=== PATIENT | female | born 1985 | race Caucasian/White ===

== ENCOUNTER 2020-04-07 14:35 | Emergency (ER) | payer OTHER, MEDICAID, SELFPAY ==
[2020-04-07] VITALS (15 sets, daily range): BP systolic 110–139; BP diastolic 58–93; PULSE 82–120; RESP 14–20; TEMP 36.9–37.1; O2SAT 92–100; BMI 25.8
--- NOTE | 2020-04-07 14:43 | ED_ITS ---
HPI - SOB/Dyspnea <DO Kathie Riley Last Filed: 04/12/20 07:37> General Chief Complaint: Shortness of Breath/Dyspnea Stated Complaint: Cough x4 Days / Diarrhea Time Seen by Provider: 04/07/20 14:43 Source: patient and EMS Mode of arrival: EMS Limitations: no limitations History of Present Illness HPI Narrative: Patient is a 34-year-old female who presents with 4 days of cough his shortness of breath. She says that she has been traveling around the country over the last 1 month she has been driving and trying to make it straight through. She has also had some vomiting diarrhea ongoing for the last 1 month. She admits to partying pretty hard over the 04 of April weekend however her cough and shortness of breath have gotten worse. She says it hurts every time he takes a deep breath. She has had sweats and has been taking her temperature fairly religiously and the highest it has been is 102. She denies any abdominal pain. MD Complaint: shortness of breath and cough Related Data Previous Rx's Medication Instructions Recorded chlordiazepoxide HCl See Rx Instructions .ROUTE 04/08/20 .COMPLEX PRN #32 cap Allergies Allergy/AdvReac Type Severity Reaction Status Date / Time No Known Drug Allergies Allergy Verified 04/07/20 14:43 Review of Systems <DO Kathie Riley Last Filed: 04/12/20 07:37> Review of Systems ROS Unobtainable: All systems reviewed & are unremarkable except as noted in HPI and below Constitutional Constitutional: Reports body ache(s) and Reports chills Eyes Eyes: Denies change in vision, Denies eye discharge, Denies irritation and Denies loss of vision Cardiovascular Cardiovascular: Denies chest pain, Denies irregular heart rhythm, Denies lighth eadedness, Denies palpitations, Reports dyspnea and Denies orthopnea Respiratory Respiratory: Reports cough and Reports dyspnea Integumentary/Breasts Skin/Breast: Denies pruritus, Denies erythema, Denies rash and Denies wounds Neurologic Neurologic: Denies loss of vision Endocrine Endocrine: Denies palpitations Patient History <DO Kathie Riley Last Filed: 04/12/20 07:37> Social History Smoking Status: Current every day smoker Alcohol type: beer Substance Use Type: does not use Exam <DO Kathie Riley Last Filed: 04/12/20 07:37> Initial Vital Signs Initial Vital Signs: Vital Signs Temperature 98.8 F 04/07/20 14:43 Pulse Rate 112 H 04/07/20 14:43 Respiratory Rate 18 04/07/20 14:43 Blood Pressure 134/86 04/07/20 14:43 Pulse Oximetry 95 04/07/20 14:43 GENERAL: Tearful alert female and in [no acute] distress. HEENT: Head atraumatic,EOMI, pupils reactive, face symmetric CARDIOVASCULAR: Regular rate and rhythm without murmurs, rubs or gallops. RESPIRATORY: Breath sounds equal bilaterally, no wheezes rales or rhonchi. ABDOMEN: Soft, nontender. Normoactive bowel sounds all 4 quadrants. No guardi ng or rebound. EXTREMITIES: Normal range of motion, no clubbing or edema. Neurovascularly intact NEUROLOGICAL: Alert and oriented x4.Normal gait and speech. SKIN: Warm, dry, no laceration, no petechiae, no rashes or lesions. <Jones Parry MD - Last Filed: 04/08/20 07:22> Initial Vital Signs Initial Vital Signs: Vital Signs Temperature 98.8 F 04/07/20 14:43 Pulse Rate 112 H 04/07/20 14:43 Respiratory Rate 18 04/07/20 14:43 Blood Pressure 134/86 04/07/20 14:43 Pulse Oximetry 95 04/07/20 14:43 Scores <DO Kathie Riley Last Filed: 04/12/20 07:37> PERC Score Age greater than or equal to 50 years: No Heart rate greater than or equal to 100 bpm: Yes Room Air O2 Sat less than 95%: No Unilateral leg swelling: No Recent trauma or surgery: No Hemoptysis: No Prior PE or DVT: No Hormone Use: No Total PERC Score: 1 Course <DO Kathie Riley Last Filed: 04/12/20 07:37> Orders Ordered: Discontinued Medications Albuterol (Ventolin Hfa) 1 puff INH NOW ONE Stop: 04/07/20 14:45 Last Admin: 04/07/20 14:55 Dose: 1 puff Documented by: MELISSA Sodium Chloride (Normal Saline 0.9%) 1,000 mls @ 100 mls/hr IV CONT NELLIE Last Infusion: 04/07/20 18:38 Dose: 0 mls/hr Documented by: Infusion: 04/07/20 16:40 Dose: 999 mls/hr Documented by: Admin: 04/07/20 15:23 Dose: 100 mls/hr Documented by: SUZI Sodium Chloride (Normal Saline 0.9%) 1,000 mls @ 1,000 mls/hr IV BOLUS ONE Stop: 04/07/20 16:58 Last Infusion: 04/07/20 19:33 Dose: 0 mls/hr Documented by: Admin: 04/07/20 17:24 Dose: 1,000 mls/hr Documented by: SUZI Sodium Chloride (Normal Saline 0.9%) 1,000 mls @ 1,000 mls/hr IV BOLUS ONE Stop: 04/07/20 20:35 Last Infusion: 04/07/20 21:04 Dose: 1,000 mls/hr Documented by: Admin: 04/07/20 19:57 Dose: 1,000 mls/hr Documented by: JOS Lorazepam (Ativan) 2 mg PO NOW ONE Stop: 04/07/20 18:36 Last Admin: 04/07/20 18:40 Dose: 2 mg Documented by: SUZI Lorazepam (Ativan) 2 mg PO NOW ONE Stop: 04/08/20 01:38 Last Admin: 04/08/20 01:43 Dose: 2 mg Documented by: FLO Phenobarbital (Phenobarbital) 130 mg IV NOW ONE Stop: 04/07/20 16:45 Last Admin: 04/07/20 16:57 Dose: 130 mg Documented by: SUZI Vital Signs Vital signs: Vital Signs - 8 hr 04/08/20 02:02 Pulse Rate 80 Respiratory Rate 15 Blood Pressure 134/70 Pulse Oximetry 96 <Jones Parry MD - Last Filed: 04/08/20 07:22> Course Course Narrative: 04/08/2020. Care was transitioned from Dr. Zuniga to myself at change of shift. Patient was found to be quite intoxicated. She was evaluated for infection, Covid testing was negative. She is medicated for tremor. Along with the significant elevated alcohol level, she had elevated lactic acid level. Lactic acid improved with IV hydration and time. She has lactic acidosis secondary to the alcohol intoxication, she has no clinical findings suggestive of sepsis. During her care in the ER she was evaluated by a social media assistant to assist in placement. Her alcohol level has decreased below 0.2, she is oriented, but complains of tremor. I gave Ativan 2 mg p.o. in addition to care already provided by Dr. Zuniga. This helped with the tremor, she is able rest again. With the assistance from our social media assistant, it was felt that she was in position to be placed for alcohol detox. The situation apparently changed following change of shift, we have since been told there was no bed available tonight. The patient has agreed to stay in the ER through the night awaiting repeat evaluation for placement here and by the [facility] facility in the morning.Verónica FRAUSTO 07:10.04/08/20. The patient has done well throughout the night, she did receive the 1 dose of Ativan but is currently resting well without further medication. The hospital social media assistant will be asked to intervene again this morning, disposition is pending. Dr. Pop, the current ER doctor, has been notified of the situation. I suspect no intervention other than completing the disposition. Orders Ordered: Discontinued Medications Albuterol (Ventolin Hfa) 1 puff INH NOW ONE Stop: 04/07/20 14:45 Last Admin: 04/07/20 14:55 Dose: 1 puff Documented by: MELISSA Sodium Chloride (Normal Saline 0.9%) 1,000 mls @ 100 mls/hr IV CONT NELLIE Last Infusion: 04/07/20 18:38 Dose: 0 mls/hr Documented by: Infusion: 04/07/20 16:40 Dose: 999 mls/hr Documented by: Admin: 04/07/20 15:23 Dose: 100 mls/hr Documented by: SUZI Sodium Chloride (Normal Saline 0.9%) 1,000 mls @ 1,000 mls/hr IV BOLUS ONE Stop: 04/07/20 16:58 Last Infusion: 04/07/20 19:33 Dose: 0 mls/hr Documented by: Admin: 04/07/20 17:24 Dose: 1,000 mls/hr Documented by: SUZI Sodium Chloride (Normal Saline 0.9%) 1,000 mls @ 1,000 mls/hr IV BOLUS ONE Stop: 04/07/20 20:35 Last Infusion: 04/07/20 21:04 Dose: 1,000 mls/hr Documented by: Admin: 04/07/20 19:57 Dose: 1,000 mls/hr Documented by: JOS Lorazepam (Ativan) 2 mg PO NOW ONE Stop: 04/07/20 18:36 Last Admin: 04/07/20 18:40 Dose: 2 mg Documented by: SUZI Lorazepam (Ativan) 2 mg PO NOW ONE Stop: 04/08/20 01:38 Last Admin: 04/08/20 01:43 Dose: 2 mg Documented by: FLO Phenobarbital (Phenobarbital) 130 mg IV NOW ONE Stop: 04/07/20 16:45 Last Admin: 04/07/20 16:57 Dose: 130 mg Documented by: SUZI Vital Signs Vital signs: Vital Signs - 8 hr 04/08/20 02:02 Pulse Rate 80 Respiratory Rate 15 Blood Pressure 134/70 Pulse Oximetry 96 MDM - SOB/Dyspnea <Brianne Zuniga DO - Last Filed: 04/12/20 07:37> Lab Data Attestation: I reviewed the patient's lab results. Result diagrams: 04/07/20 14:40 04/07/20 14:40 Labs: Lab Results 04/07/20 04/07/20 04/07/20 Range/Units 14:40 14:40 14:40 WBC 5.8 (4.5-11.0) X10^3/uL RBC 4.62 (4.0-5.2) X10^6/uL Hgb 15.6 (12.0-16.0) g/dL Hct 46.0 (36-46) % MCV 99.5 (80-100) fL MCH 33.8 (26-34) PG MCHC 33.9 (30-36) % RDW 14.8 (11.6-14.8) % Plt Count 453 H (150-400) X10^3/uL Neut % (Auto) 40.8 L (50-75) % Lymph % (Auto) 48.8 H (25-40) % Schleicher % (Auto) 9.6 (3-14) % Eos % (Auto) 0.3 L (2-4) % Baso % (Auto) 0.5 (0-2) % Neut # (Auto) 2400 (7654-1957) /uL Lymph # (Auto) 2800 (6969-6823) /uL Schleicher # (Auto) 600 (0-900) /uL Eos # (Auto) 0 (0-450) /uL Baso # (Auto) 0 (0-100) /uL D-Dimer 289 H (<230) ng/mL Sodium 140 (137-145) mmol/L Potassium 4.0 (3.4-5.1) mmol/L Chloride 103 (98-107) mmol/L Carbon Dioxide 24 (22-32) mmol/L BUN 6 L (7-17) mg/dL Creatinine 0.60 (0.52-1.04) mg/dL Estimated GFR > 60.0 (>60) mL/min BUN/Creatinine Ratio 10.0 (6-22) Glucose 103 H (70-100) mg/dL Lactate (0.7-2.1) mmol/L Calcium 9.1 (8.4-10.2) mg/dL Ferritin (6-137) ng/mL Total Bilirubin 0.5 (0.2-1.3) mg/dL AST 107 H (14-36) IU/L ALT 119 H (<35) IU/L Alkaline Phosphatase 75 (38-126) U/L Total Creatine Kinase 69 (30-135) U/L CK-MB (CK-2) TNP CK-MB (CK-2) Rel Index TNP Troponin I < 0.012 (0.01-0.034) ng/mL C-Reactive Protein (<1.0) mg/dL NT-Pro-B Natriuret Pep (<125) pg/mL Total Protein 8.1 (6.3-8.2) g/dL Albumin 4.8 (3.5-5.0) g/dL Globulin 3.3 (1.7-4.1) g/dL Albumin/Globulin Ratio 1.5 (1.0-2.8) Procalcitonin (<0.5) ng/mL Ethyl Alcohol ( - 10) mg/dL COVID-19 PCR 04/07/20 04/07/20 04/07/20 Range/Units 14:40 14:40 14:40 WBC (4.5-11.0) X10^3/uL RBC (4.0-5.2) X10^6/uL Hgb (12.0-16.0) g/dL Hct (36-46) % MCV (80-100) fL MCH (26-34) PG MCHC (30-36) % RDW (11.6-14.8) % Plt Count (150-400) X10^3/uL Neut % (Auto) (50-75) % Lymph % (Auto) (25-40) % Schleicher % (Auto) (3-14) % Eos % (Auto) (2-4) % Baso % (Auto) (0-2) % Neut # (Auto) (6918-4806) /uL Lymph # (Auto) (1207-6799) /uL Schleicher # (Auto) (0-900) /uL Eos # (Auto) (0-450) /uL Baso # (Auto) (0-100) /uL D-Dimer (<230) ng/mL Sodium (137-145) mmol/L Potassium (3.4-5.1) mmol/L Chloride (98-107) mmol/L Carbon Dioxide (22-32) mmol/L BUN (7-17) mg/dL Creatinine (0.52-1.04) mg/dL Estimated GFR (>60) mL/min BUN/Creatinine Ratio (6-22) Glucose (70-100) mg/dL Lactate (0.7-2.1) mmol/L Calcium (8.4-10.2) mg/dL Ferritin 44 (6-137) ng/mL Total Bilirubin (0.2-1.3) mg/dL AST (14-36) IU/L ALT (<35) IU/L Alkaline Phosphatase (38-126) U/L Total Creatine Kinase (30-135) U/L CK-MB (CK-2) CK-MB (CK-2) Rel Index Troponin I (0.01-0.034) ng/mL C-Reactive Protein < 0.5 (<1.0) mg/dL NT-Pro-B Natriuret Pep 28 (<125) pg/mL Total Protein (6.3-8.2) g/dL Albumin (3.5-5.0) g/dL Globulin (1.7-4.1) g/dL Albumin/Globulin Ratio (1.0-2.8) Procalcitonin < 0.05 (<0.5) ng/mL Ethyl Alcohol 415 H* ( - 10) mg/dL COVID-19 PCR 04/07/20 04/07/20 04/07/20 Range/Units 14:50 14:50 15:10 WBC (4.5-11.0) X10^3/uL RBC (4.0-5.2) X10^6/uL Hgb (12.0-16.0) g/dL Hct (36-46) % MCV (80-100) fL MCH (26-34) PG MCHC (30-36) % RDW (11.6-14.8) % Plt Count (150-400) X10^3/uL Neut % (Auto) (50-75) % Lymph % (Auto) (25-40) % Schleicher % (Auto) (3-14) % Eos % (Auto) (2-4) % Baso % (Auto) (0-2) % Neut # (Auto) (5945-0184) /uL Lymph # (Auto) (9590-3425) /uL Schleicher # (Auto) (0-900) /uL Eos # (Auto) (0-450) /uL Baso # (Auto) (0-100) /uL D-Dimer (<230) ng/mL Sodium (137-145) mmol/L Potassium (3.4-5.1) mmol/L Chloride (98-107) mmol/L Carbon Dioxide (22-32) mmol/L BUN (7-17) mg/dL Creatinine (0.52-1.04) mg/dL Estimated GFR (>60) mL/min BUN/Creatinine Ratio (6-22) Glucose (70-100) mg/dL Lactate 3.2 H (0.7-2.1) mmol/L Calcium (8.4-10.2) mg/dL Ferritin (6-137) ng/mL Total Bilirubin (0.2-1.3) mg/dL AST (14-36) IU/L ALT (<35) IU/L Alkaline Phosphatase (38-126) U/L Total Creatine Kinase (30-135) U/L CK-MB (CK-2) CK-MB (CK-2) Rel Index Troponin I (0.01-0.034) ng/mL C-Reactive Protein (<1.0) mg/dL NT-Pro-B Natriuret Pep (<125) pg/mL Total Protein (6.3-8.2) g/dL Albumin (3.5-5.0) g/dL Globulin (1.7-4.1) g/dL Albumin/Globulin Ratio (1.0-2.8) Procalcitonin (<0.5) ng/mL Ethyl Alcohol ( - 10) mg/dL COVID-19 PCR Cancelled Negative 04/07/20 04/07/20 04/07/20 Range/Units 17:42 21:00 21:00 WBC (4.5-11.0) X10^3/uL RBC (4.0-5.2) X10^6/uL Hgb (12.0-16.0) g/dL Hct (36-46) % MCV (80-100) fL MCH (26-34) PG MCHC (30-36) % RDW (11.6-14.8) % Plt Count (150-400) X10^3/uL Neut % (Auto) (50-75) % Lymph % (Auto) (25-40) % Schleicher % (Auto) (3-14) % Eos % (Auto) (2-4) % Baso % (Auto) (0-2) % Neut # (Auto) (2662-0891) /uL Lymph # (Auto) (1279-5821) /uL Schleicher # (Auto) (0-900) /uL Eos # (Auto) (0-450) /uL Baso # (Auto) (0-100) /uL D-Dimer (<230) ng/mL Sodium (137-145) mmol/L Potassium (3.4-5.1) mmol/L Chloride (98-107) mmol/L Carbon Dioxide (22-32) mmol/L BUN (7-17) mg/dL Creatinine (0.52-1.04) mg/dL Estimated GFR (>60) mL/min BUN/Creatinine Ratio (6-22) Glucose (70-100) mg/dL Lactate 2.9 H 2.7 H (0.7-2.1) mmol/L Calcium (8.4-10.2) mg/dL Ferritin (6-137) ng/mL Total Bilirubin (0.2-1.3) mg/dL AST (14-36) IU/L ALT (<35) IU/L Alkaline Phosphatase (38-126) U/L Total Creatine Kinase (30-135) U/L CK-MB (CK-2) CK-MB (CK-2) Rel Index Troponin I (0.01-0.034) ng/mL C-Reactive Protein (<1.0) mg/dL NT-Pro-B Natriuret Pep (<125) pg/mL Total Protein (6.3-8.2) g/dL Albumin (3.5-5.0) g/dL Globulin (1.7-4.1) g/dL Albumin/Globulin Ratio (1.0-2.8) Procalcitonin (<0.5) ng/mL Ethyl Alcohol 191 H ( - 10) mg/dL COVID-19 PCR 04/07/20 Range/Units 23:15 WBC (4.5-11.0) X10^3/uL RBC (4.0-5.2) X10^6/uL Hgb (12.0-16.0) g/dL Hct (36-46) % MCV (80-100) fL MCH (26-34) PG MCHC (30-36) % RDW (11.6-14.8) % Plt Count (150-400) X10^3/uL Neut % (Auto) (50-75) % Lymph % (Auto) (25-40) % Schleicher % (Auto) (3-14) % Eos % (Auto) (2-4) % Baso % (Auto) (0-2) % Neut # (Auto) (9179-7809) /uL Lymph # (Auto) (9198-1214) /uL Schleicher # (Auto) (0-900) /uL Eos # (Auto) (0-450) /uL Baso # (Auto) (0-100) /uL D-Dimer (<230) ng/mL Sodium (137-145) mmol/L Potassium (3.4-5.1) mmol/L Chloride (98-107) mmol/L Carbon Dioxide (22-32) mmol/L BUN (7-17) mg/dL Creatinine (0.52-1.04) mg/dL Estimated GFR (>60) mL/min BUN/Creatinine Ratio (6-22) Glucose (70-100) mg/dL Lactate 2.1 (0.7-2.1) mmol/L Calcium (8.4-10.2) mg/dL Ferritin (6-137) ng/mL Total Bilirubin (0.2-1.3) mg/dL AST (14-36) IU/L ALT (<35) IU/L Alkaline Phosphatase (38-126) U/L Total Creatine Kinase (30-135) U/L CK-MB (CK-2) CK-MB (CK-2) Rel Index Troponin I (0.01-0.034) ng/mL C-Reactive Protein (<1.0) mg/dL NT-Pro-B Natriuret Pep (<125) pg/mL Total Protein (6.3-8.2) g/dL Albumin (3.5-5.0) g/dL Globulin (1.7-4.1) g/dL Albumin/Globulin Ratio (1.0-2.8) Procalcitonin (<0.5) ng/mL Ethyl Alcohol ( - 10) mg/dL COVID-19 PCR Point of Care Testing Test Results Negative Urine Dip Bedside Urine Glucose Negative Bedside Urine Bilirubin - Negative Bedside Urine Ketone - Negative Urine Specific [place] 1.020 Bedside Urine Occult Blood +++ Bedside Urine pH 6.0 Bedside Urine Protein +/- 15 Bedside Urine Urobilinogen - Negative Bedside Urine Nitrite - Negative Bedside Urine Leukocytes - Negative Esterase Imaging Data Chest x-ray: Radiologist's Impression: PROCEDURE: XR CHEST 1V INDICATIONS: flu-like symptoms TECHNIQUE: One view of the chest was acquired. COMPARISON: None. FINDINGS: Surgical changes and devices: None. Lungs and pleura: Lungs are clear. No pleural effusions or pneumothorax. Mediastinum: Mediastinal contours appear normal. Heart size is normal. Bones and chest wall: No suspicious bony lesions. Overlying soft tissues appear unremarkable. IMPRESSION: Normal for age, source of current flulike symptoms is not seen. Dictated by: Jorge Alberto Vu M.D. on 04/07/2020 at 16:03 Approved by: Jorge Alberto Vu M.D. on 04/07/2020 at 16:03 ECG Data Attestation: I personally reviewed and interpreted this ECG as follows: Prior ECG tracings: not available for review Interpretation: Normal sinus rhythm rate 100 p.r. interval 114 QRS [address] changes no priors to compare MDM Narrative Medical decision making narrative: Patient is an alcoholic admits to drinking a 12 pack of beer daily for number of months. Her alcohol level is significantly elevated at 415 she is awake alert and talking. She is given a dose of phenobarbital she starts shaking a little and later becomes quite anxious requiring Ativan. There is no sign of infection at this time urine chest x-ray and COVID are negative D-dimer and PERC score are also low and negative. She says her diarrhea and vomiting have been ongoing for months she has not had any vomiting or diarrhea while in the emergency department does not appear to be significantly dehydrated. Initial lactic acid is 3.2 repeat after 2 L of IV fluids is 2.9. She is wanting detox, social work has been in to evaluate. Patient signed out to Dr. Parry for further management <Jones Parry MD - Last Filed: 04/08/20 07:22> Lab Data Labs: Lab Results 04/07/20 04/07/20 04/07/20 Range/Units 14:40 14:40 14:40 WBC 5.8 (4.5-11.0) X10^3/uL RBC 4.62 (4.0-5.2) X10^6/uL Hgb 15.6 (12.0-16.0) g/dL Hct 46.0 (36-46) % MCV 99.5 (80-100) fL MCH 33.8 (26-34) PG MCHC 33.9 (30-36) % RDW 14.8 (11.6-14.8) % Plt Count 453 H (150-400) X10^3/uL Neut % (Auto) 40.8 L (50-75) % Lymph % (Auto) 48.8 H (25-40) % Schleicher % (Auto) 9.6 (3-14) % Eos % (Auto) 0.3 L (2-4) % Baso % (Auto) 0.5 (0-2) % Neut # (Auto) 2400 (1938-9555) /uL Lymph # (Auto) 2800 (4573-1850) /uL Schleicher # (Auto) 600 (0-900) /uL Eos # (Auto) 0 (0-450) /uL Baso # (Auto) 0 (0-100) /uL D-Dimer 289 H (<230) ng/mL Sodium 140 (137-145) mmol/L Potassium 4.0 (3.4-5.1) mmol/L Chloride 103 (98-107) mmol/L Carbon Dioxide 24 (22-32) mmol/L BUN 6 L (7-17) mg/dL Creatinine 0.60 (0.52-1.04) mg/dL Estimated GFR > 60.0 (>60) mL/min BUN/Creatinine Ratio 10.0 (6-22) Glucose 103 H (70-100) mg/dL Lactate (0.7-2.1) mmol/L Calcium 9.1 (8.4-10.2) mg/dL Ferritin (6-137) ng/mL Total Bilirubin 0.5 (0.2-1.3) mg/dL AST 107 H (14-36) IU/L ALT 119 H (<35) IU/L Alkaline Phosphatase 75 (38-126) U/L Total Creatine Kinase 69 (30-135) U/L CK-MB (CK-2) TNP CK-MB (CK-2) Rel Index TNP Troponin I < 0.012 (0.01-0.034) ng/mL C-Reactive Protein (<1.0) mg/dL NT-Pro-B Natriuret Pep (<125) pg/mL Total Protein 8.1 (6.3-8.2) g/dL Albumin 4.8 (3.5-5.0) g/dL Globulin 3.3 (1.7-4.1) g/dL Albumin/Globulin Ratio 1.5 (1.0-2.8) Procalcitonin (<0.5) ng/mL Ethyl Alcohol ( - 10) mg/dL COVID-19 PCR 04/07/20 04/07/20 04/07/20 Range/Units 14:40 14:40 14:40 WBC (4.5-11.0) X10^3/uL RBC (4.0-5.2) X10^6/uL Hgb (12.0-16.0) g/dL Hct (36-46) % MCV (80-100) fL MCH (26-34) PG MCHC (30-36) % RDW (11.6-14.8) % Plt Count (150-400) X10^3/uL Neut % (Auto) (50-75) % Lymph % (Auto) (25-40) % Schleicher % (Auto) (3-14) % Eos % (Auto) (2-4) % Baso % (Auto) (0-2) % Neut # (Auto) (3923-8932) /uL Lymph # (Auto) (5351-7396) /uL Schleicher # (Auto) (0-900) /uL Eos # (Auto) (0-450) /uL Baso # (Auto) (0-100) /uL D-Dimer (<230) ng/mL Sodium (137-145) mmol/L Potassium (3.4-5.1) mmol/L Chloride (98-107) mmol/L Carbon Dioxide (22-32) mmol/L BUN (7-17) mg/dL Creatinine (0.52-1.04) mg/dL Estimated GFR (>60) mL/min BUN/Creatinine Ratio (6-22) Glucose (70-100) mg/dL Lactate (0.7-2.1) mmol/L Calcium (8.4-10.2) mg/dL Ferritin 44 (6-137) ng/mL Total Bilirubin (0.2-1.3) mg/dL AST (14-36) IU/L ALT (<35) IU/L Alkaline Phosphatase (38-126) U/L Total Creatine Kinase (30-135) U/L CK-MB (CK-2) CK-MB (CK-2) Rel Index Troponin I (0.01-0.034) ng/mL C-Reactive Protein < 0.5 (<1.0) mg/dL NT-Pro-B Natriuret Pep 28 (<125) pg/mL Total Protein (6.3-8.2) g/dL Albumin (3.5-5.0) g/dL Globulin (1.7-4.1) g/dL Albumin/Globulin Ratio (1.0-2.8) Procalcitonin < 0.05 (<0.5) ng/mL Ethyl Alcohol 415 H* ( - 10) mg/dL COVID-19 PCR 04/07/20 04/07/20 04/07/20 Range/Units 14:50 14:50 15:10 WBC (4.5-11.0) X10^3/uL RBC (4.0-5.2) X10^6/uL Hgb (12.0-16.0) g/dL Hct (36-46) % MCV (80-100) fL MCH (26-34) PG MCHC (30-36) % RDW (11.6-14.8) % Plt Count (150-400) X10^3/uL Neut % (Auto) (50-75) % Lymph % (Auto) (25-40) % Schleicher % (Auto) (3-14) % Eos % (Auto) (2-4) % Baso % (Auto) (0-2) % Neut # (Auto) (6409-1334) /uL Lymph # (Auto) (7654-2281) /uL Schleicher # (Auto) (0-900) /uL Eos # (Auto) (0-450) /uL Baso # (Auto) (0-100) /uL D-Dimer (<230) ng/mL Sodium (137-145) mmol/L Potassium (3.4-5.1) mmol/L Chloride (98-107) mmol/L Carbon Dioxide (22-32) mmol/L BUN (7-17) mg/dL Creatinine (0.52-1.04) mg/dL Estimated GFR (>60) mL/min BUN/Creatinine Ratio (6-22) Glucose (70-100) mg/dL Lactate 3.2 H (0.7-2.1) mmol/L Calcium (8.4-10.2) mg/dL Ferritin (6-137) ng/mL Total Bilirubin (0.2-1.3) mg/dL AST (14-36) IU/L ALT (<35) IU/L Alkaline Phosphatase (38-126) U/L Total Creatine Kinase (30-135) U/L CK-MB (CK-2) CK-MB (CK-2) Rel Index Troponin I (0.01-0.034) ng/mL C-Reactive Protein (<1.0) mg/dL NT-Pro-B Natriuret Pep (<125) pg/mL Total Protein (6.3-8.2) g/dL Albumin (3.5-5.0) g/dL Globulin (1.7-4.1) g/dL Albumin/Globulin Ratio (1.0-2.8) Procalcitonin (<0.5) ng/mL Ethyl Alcohol ( - 10) mg/dL COVID-19 PCR Cancelled Negative 04/07/20 04/07/20 04/07/20 Range/Units 17:42 21:00 21:00 WBC (4.5-11.0) X10^3/uL RBC (4.0-5.2) X10^6/uL Hgb (12.0-16.0) g/dL Hct (36-46) % MCV (80-100) fL MCH (26-34) PG MCHC (30-36) % RDW (11.6-14.8) % Plt Count (150-400) X10^3/uL Neut % (Auto) (50-75) % Lymph % (Auto) (25-40) % Schleicher % (Auto) (3-14) % Eos % (Auto) (2-4) % Baso % (Auto) (0-2) % Neut # (Auto) (2817-0347) /uL Lymph # (Auto) (9494-0854) /uL Schleicher # (Auto) (0-900) /uL Eos # (Auto) (0-450) /uL Baso # (Auto) (0-100) /uL D-Dimer (<230) ng/mL Sodium (137-145) mmol/L Potassium (3.4-5.1) mmol/L Chloride (98-107) mmol/L Carbon Dioxide (22-32) mmol/L BUN (7-17) mg/dL Creatinine (0.52-1.04) mg/dL Estimated GFR (>60) mL/min BUN/Creatinine Ratio (6-22) Glucose (70-100) mg/dL Lactate 2.9 H 2.7 H (0.7-2.1) mmol/L Calcium (8.4-10.2) mg/dL Ferritin (6-137) ng/mL Total Bilirubin (0.2-1.3) mg/dL AST (14-36) IU/L ALT (<35) IU/L Alkaline Phosphatase (38-126) U/L Total Creatine Kinase (30-135) U/L CK-MB (CK-2) CK-MB (CK-2) Rel Index Troponin I (0.01-0.034) ng/mL C-Reactive Protein (<1.0) mg/dL NT-Pro-B Natriuret Pep (<125) pg/mL Total Protein (6.3-8.2) g/dL Albumin (3.5-5.0) g/dL Globulin (1.7-4.1) g/dL Albumin/Globulin Ratio (1.0-2.8) Procalcitonin (<0.5) ng/mL Ethyl Alcohol 191 H ( - 10) mg/dL COVID-19 PCR 04/07/20 Range/Units 23:15 WBC (4.5-11.0) X10^3/uL RBC (4.0-5.2) X10^6/uL Hgb (12.0-16.0) g/dL Hct (36-46) % MCV (80-100) fL MCH (26-34) PG MCHC (30-36) % RDW (11.6-14.8) % Plt Count (150-400) X10^3/uL Neut % (Auto) (50-75) % Lymph % (Auto) (25-40) % Schleicher % (Auto) (3-14) % Eos % (Auto) (2-4) % Baso % (Auto) (0-2) % Neut # (Auto) (4755-1655) /uL Lymph # (Auto) (8802-4724) /uL Schleicher # (Auto) (0-900) /uL Eos # (Auto) (0-450) /uL Baso # (Auto) (0-100) /uL D-Dimer (<230) ng/mL Sodium (137-145) mmol/L Potassium (3.4-5.1) mmol/L Chloride (98-107) mmol/L Carbon Dioxide (22-32) mmol/L BUN (7-17) mg/dL Creatinine (0.52-1.04) mg/dL Estimated GFR (>60) mL/min BUN/Creatinine Ratio (6-22) Glucose (70-100) mg/dL Lactate 2.1 (0.7-2.1) mmol/L Calcium (8.4-10.2) mg/dL Ferritin (6-137) ng/mL Total Bilirubin (0.2-1.3) mg/dL AST (14-36) IU/L ALT (<35) IU/L Alkaline Phosphatase (38-126) U/L Total Creatine Kinase (30-135) U/L CK-MB (CK-2) CK-MB (CK-2) Rel Index Troponin I (0.01-0.034) ng/mL C-Reactive Protein (<1.0) mg/dL NT-Pro-B Natriuret Pep (<125) pg/mL Total Protein (6.3-8.2) g/dL Albumin (3.5-5.0) g/dL Globulin (1.7-4.1) g/dL Albumin/Globulin Ratio (1.0-2.8) Procalcitonin (<0.5) ng/mL Ethyl Alcohol ( - 10) mg/dL COVID-19 PCR Point of Care Testing Test Results Negative Urine Dip Bedside Urine Glucose Negative Bedside Urine Bilirubin - Negative Bedside Urine Ketone - Negative Urine Specific [place] 1.020 Bedside Urine Occult Blood +++ Bedside Urine pH 6.0 Bedside Urine Protein +/- 15 Bedside Urine Urobilinogen - Negative Bedside Urine Nitrite - Negative Bedside Urine Leukocytes - Negative Esterase Discharge Plan Departure Patient Disposition: Released, Other Clinical Impression: Alcohol intoxication, Lactic acidosis Discharge Date/Time: 04/08/20 14:12 Instructions: Alcohol Use Disorder Activity Restrictions/Additional Instructions: *You have been diagnosed with [alcohol abuse disorder] *What to do: *Take medications as directed: You have been given a prescription for a Librium taper *Please proceed directly from here to the treatment center in [place] that social work talked to you about: [facility] [address] [place] [id number] Prescriptions: New chlordiazepoxide HCl 25 mg capsule See Rx Instructions .ROUTE .COMPLEX PRN (Reason: alcohol withdrawal) Qty: 32 RF: 0
[2020-04-07 14:52] LABS: Add Manual Diff / Slide Review NO; Basophils Absolute Auto 0 /uL (0-100); Basophils Percent Auto 0.5 % (0-2); Eosinophils Absolute Auto 0 /uL (0-450); Eosinophils Percent Auto 0.3 % (2-4); Hemoglobin 15.6 g/dL (12.0-16.0); Lymphocytes Absolute Auto 2800 /uL (1100-4500); Lymphocytes Percent Auto 48.8 % (25-40); Mean Corpuscular HGB Conc 33.9 % (30-36); Mean Corpuscular Hemoglobin 33.8 PG (26-34); Mean Corpuscular Volume 99.5 fL (80-100); Monocytes Absolute Auto 600 /uL (0-900); Monocytes Percent Auto 9.6 % (3-14); Neutrophils Absolute Auto 2400 /uL (1500-7000); Neutrophils Percent Auto 40.8 % (50-75); Platelet Count 453 X10^3/uL (150-400); Red Blood Cell Count 4.62 X10^6/uL (4.0-5.2); Red Cell Distribution Width 14.8 % (11.6-14.8); White Blood Cell Count 5.8 X10^3/uL (4.5-11.0)
[2020-04-07] MEDS: ALBUTEROL HFA 60 PUFF/8 GM INH INH (14:55)
[2020-04-07 15:03] LABS: D Dimer 289 ng/mL (<230)
[2020-04-07 15:05] LABS: Alanine Aminotransferase 119 IU/L (<35); Albumin 4.8 g/dL (3.5-5.0); Albumin Globulin Ratio 1.5 (1.0-2.8); Alkaline Phosphatase 75 U/L (38-126); Aspartate Aminotransferase 107 IU/L (14-36); Bilirubin Total 0.5 mg/dL (0.2-1.3); Blood Urea Nitrogen 6 mg/dL (7-17); Calcium 9.1 mg/dL (8.4-10.2); Carbon Dioxide 24 mmol/L (22-32); Chloride 103 mmol/L (98-107); Creatine Kinase 69 U/L (30-135); Estimated Glomerular Filt Rate > 60.0 mL/min (>60); Globulin 3.3 g/dL (1.7-4.1); Glucose 103 mg/dL (70-100); HEMOLYSIS < 15 (0-50); Sodium 140 mmol/L (137-145); Total Protein 8.1 g/dL (6.3-8.2)
[2020-04-07 15:11] LABS: C-Reactive Protein Quant < 0.5 mg/dL (<1.0)
[2020-04-07 15:16] LABS: Troponin I < 0.012 ng/mL (0.01-0.034)
[2020-04-07 15:17] LABS: NT-proBNP (BNP-Adult 18+) 28 pg/mL (<125)
[2020-04-07 15:19] LABS: Procalcitonin < 0.05 ng/mL (<0.5)
[2020-04-07] MEDS: SODIUM CHLORIDE 0.9% 1,000 ML 100 ML IV (15:23)
[2020-04-07 15:36] LABS: Lactate (Lactic Acid) 3.2 mmol/L (0.7-2.1)
[2020-04-07 15:43] LABS: Ferritin 44 ng/mL (6-137)
[2020-04-07] MEDS: PHENobarbital 65 MG/ML VIAL 130 MG IV (16:57)
[2020-04-07 17:06] LABS: Ethanol (ETOH) 415 mg/dL
[2020-04-07 17:22] LABS: Reflexed Lactate in 2 Hours Y
[2020-04-07] MEDS: SODIUM CHLORIDE 0.9% 1,000 ML 1000 ML IV ×2 (17:24→19:57)
[2020-04-07 18:01] LABS: Lactate 2HR (Lactic Acid Rflx) 2.9 mmol/L (0.7-2.1)
[2020-04-07 18:03] LABS: COVID19 -Nasal RAPID Negative (Negative)
--- NOTE | 2020-04-07 18:23 | PC.NURSE ---
Pt states that she is coming off a major binge. States she has been drinking 20 beers a day for the last three months. States she is having withdrawal symptoms. Dr Zuniga informed. New orders.
[2020-04-07] MEDS: LORazepam 0.5 MG TABLET 2 MG PO (18:40)
--- NOTE | 2020-04-07 19:37 | CM.SWNOTE ---
Addendum entered by Marcos Cm 04/07/20 20:09: ROTARY DRYER OPERATOR note- UPDATE ROTARY DRYER OPERATOR calls [facility] after patient completes intake. [facility] informs ROTARY DRYER OPERATOR that they are able to accept patient and ask ROTARY DRYER OPERATOR to fax clinicals to [facility]. ROTARY DRYER OPERATOR informs [facility] of patient's ETOH upon presentation to ED, and that ED staff plan to get new labs for patient at 2100. [facility] informs ROTARY DRYER OPERATOR that patient must have ETOH of under 250 prior to transfer. ROTARY DRYER OPERATOR gives [facility] [phone] for coordination of transfer as ROTARY DRYER OPERATOR shift will end prior to patient being transferred. ROTARY DRYER OPERATOR faxes clinicals to [facility]. ROTARY DRYER OPERATOR updates Dr. Parry and patient, both indicate understanding and agreement with plan. ROTARY DRYER OPERATOR updates comments with next steps, updates ARANZA Tidwell for mounika simental coordination of transport and BENNIE Samano. pl: Patient to transfer to [facility] Marcos Cm, ALEXEI Original Note: ROTARY DRYER OPERATOR note/assessment ROTARY DRYER OPERATOR consult requested for patient. Patient is a 34 y/o female who presents to ED with cough, diarrhea, and etoh of 415 mg/dL upon time of admission. ROTARY DRYER OPERATOR meets with patient and completes assessment (see below). Patient reports she does not feel well, and doesn't want to feel this way anymore. Patient reports she wants to discontinue drinking, but states that saying it outloud gives [her] anxiety. ROTARY DRYER OPERATOR validates patient's feeling of anxiety, and discusses ways to proceed. ROTARY DRYER OPERATOR and patient discuss detox. ROTARY DRYER OPERATOR calls detox who ask for patient to call and complete intake. ROTARY DRYER OPERATOR brings patient phone number for detox. Patient will call detox facility and follow up with ROTARY DRYER OPERATOR after. ROTARY DRYER OPERATOR provides update to BENNIE Rodgers and BENNIE Samano. Pl: ROTARY DRYER OPERATOR will work with patient to secure placement at detox facility. ROTARY DRYER OPERATOR - Grey Inspector Assessment ROTARY DRYER OPERATOR - Grey Inspector Assessment Start: 04/07/20 19:18 Freq: Status: Active Protocol: Document 04/07/20 19:18 JONATHAN (Rec: 04/07/20 19:29 JONATHAN [id number]) ROTARY DRYER OPERATOR/Grey Inspector Assessment Time Spent with Patient Start date 04/07/20 Visit Start Time 18:50 End date 04/07/20 Visit End Time 19:15 Total time Care Management spent on 25 patient visit-in minutes Substance Abuse Screening Include Onset, Duration, Intensity Presenting Problem Patient states she has anxiety and panic disorder and self-medicates by drinking . Patient reports she has been drinking a lot for several months, and reports drinking from the time she wakes up until the time she goes to bed . Patient's ETOH is 415 mg/dL upon presentation to ED. Precipitating Event(s) Patient reports she lives an unstable lifestyle and has been for several years. Patient declined when asked if there was anything that happened during the previous few days prior to today's visit. Current Behavioral Health Provider(s) none reported Include Facility, Provider, Ph. # Family Hx of Behavioral Abuse none reported Rehab Facilities? ((Date(s), Location(s) none reported ) History of Withdrawal? Seizures? Patient does experience withdrawal symptoms, but reports not having previously experienced seizures during withdrawals. Longest Period of Sobriety Patient reports she has been binge drinking on and off since age 12. 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 Patient [place] and that her and her boyfriend rent out her house as an air bnb, and that she often doesn't know which place she is going to stay at at any given night. Patient reports she discontinued medication for her anxiety roughly 6 years ago and began binge drinking to cope with the symptoms. 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 Legal Concerns Legal Matters - Outstanding Issues none reported Mental Status Orientation (Person/Place/Time) Oriented x3 Affect euthymic, slightly anxious Thought Content - Specify/Describe no hallucinations, obsessions Obsessions, Delusions, Hallucinations , or delusions observed or reported during interview. Thought Processes (Ctazypz-Wquocbon-Xvww Logical-coherent Gzhaebxx-Quoytkgg-Mbhxzmfnqv- Xxzdusqakarenw-Cncsaua-Jfjhoelvlsjy- Thought Blocking) Speech (Fwxqim-Xzuc-Pjiafpg-Rapid-Soft- normal Loud-Pressured) Motor (Mkngko-Mknrrooes-Xviq-Other) normal Insight (Present-Partially Present- Partially present Impaired) Judgement (Intact-Impaired) intact Impulse Control (Adequate-Impaired) adequate Memory (Xuxglhdfw-Hukeef-Hypdno, intact x3 Impaired-Intact) Concentration (Intact-Impaired) intact Attention (Intact-Impaired) intact Behavior (Appropriate-Inappropriate) appropriate Risk Assessment Suicidal Ideation (Plan) No Homicidal Ideation (Plan) No Comment Patient denies and SI/HI Intervention Intervention ROTARY DRYER OPERATOR meets with patient. Patient reports wanting to discontinue use of alcohol. Patient reports she has used [facility] in the past, and has been binge drinking on-and -off since she was 12. ROTARY DRYER OPERATOR asked what patient planned to do to stop drinking. Patient reports she had reserved a motel room in [place], and was planning to stay there while detoxing. ROTARY DRYER OPERATOR and patient discussed detoxing at a facility. Patient expressed that she was nervous because going to a facility made it real. Patient agreed that she would like the support of a detox facility to help her with the withdrawals. Plan RA Plan ROTARY DRYER OPERATOR will give patient phone number to contact [facility] and assist with coordination for placement at detox facility. ALEXEI Brooks
[2020-04-07 21:17] LABS: Lactate (Lactic Acid) 2.7 mmol/L (0.7-2.1)
[2020-04-07 21:32] LABS: Ethanol (ETOH) 191 mg/dL
--- NOTE | 2020-04-07 21:45 | PC.NURSE ---
2144 RN called [facility] called to update pt level of ETOH under 250 for potential admission per conversation with FINANCIAL SALES MANAGER Marcos, Lakesha of [facility] stated she did not think a bed was available for pt due to the pt having covid symptoms and fever. RN faxed labs again confirming negative covid lab and ETOH level of 151. Lakesha stated that case would be passed off to shift coordinator to review and confirmed that no bed had been secured for pt at this time. 2004 RN called to confirm [facility] received fax and get an update. Brigitte of [facility] stated fax was received and that she did not think they were going to be able to accept because of fever and no female beds available. Brigitte was updated that pt has not had a fever upon being in ER and that ALEXEI Rodríguez communicated that a potential bed was available once ETOH redraw under 250 was faxed. Brigitte stated that she would follow up with trying to contact her specialty department supervisor network contract manager but most likely no bed would be available until earliest in the morning. Dr. Brinda martin.
[2020-04-07 23:03] LABS: Reflexed Lactate in 2 Hours Y
[2020-04-07 23:31] LABS: Lactate 2HR (Lactic Acid Rflx) 2.1 mmol/L (0.7-2.1)
[2020-04-08] MEDS: LORazepam 0.5 MG TABLET 2 MG PO (01:43)
[2020-04-08 02:02] VITALS: BP 134/70; PULSE 80; RESP 15; O2SAT 96
[2020-04-08 07:38] VITALS: BP 122/77; PULSE 92; RESP 16; O2SAT 96
--- NOTE | 2020-04-08 10:02 | PC.NURSE ---
left message with Care management
[2020-04-08 12:33] VITALS: O2SAT 99
[2020-04-08 12:36] VITALS: BP 133/74; PULSE 77
[2020-04-08 13:36] VITALS: BP 148/66; PULSE 76; RESP 19; O2SAT 98
--- NOTE | 2020-04-08 13:46 | PC.NURSE ---
spoke with Diann at [facility] triage detox. pt is accepted and will be getting a ride with her boyfriend to the facility
--- NOTE | 2020-04-08 15:22 | CM.SWNOTE ---
TAMALE MACHINE FEEDER Note Reviewed chart. This TAMALE MACHINE FEEDER requested to assist, Ama[facility] had denied Patient's admission this morning d/t presenting symptoms that mimic COVID-19 symptoms. COVID-19 results are Neg. Explained this to [facility] and they explained the medical records coder had already made the decision, they wanted to be very cautious about potential exposure to COVID-19. Spoke w/patient Dania who explained she remained hopeful she could go to a detox center, that she wanted to get sober and stay sober. Placed call to [facility] and they had beds-they requested that patient call in for screening. Gave number to BENNIE Montelongo and inevitably patient had been accepted and planned to drive up to [place] w/her bf. Dr Pop sent patient's librium taper to [facility] off [address] in [place] , per the request of [facility]. Amanda Pope, TAMALE MACHINE FEEDER
== END 2020-04-08 14:12 | disposition home or self-care (01) ==
PROVIDERS: Emergency Medicine; Emergency Provider Emergency Medicine
DX: F10.129 Alcohol abuse with intoxication, unspecified (principal); Y90.6 Blood alcohol level of 120-199 mg/100 ml; E87.2 Acidosis; R06.02 Shortness of breath; R05 Cough; Z03.818 Encounter for observation for suspected exposure to other biological agents ruled out
CPT/HCPCS: 36415; 71045; 80053; 80320; 81003; 81025; 82550; 82728; 83605; 83880; 84145; 84484; 85025; 85379; 86140; 87040; 87635; 93005; 93010; 94640; 96361; 96374; 99284; J2560

== ENCOUNTER 2020-08-10 15:11 | Emergency (ER) | payer OTHER, MEDICAID, SELFPAY ==
[2020-08-10] VITALS (22 sets, daily range): BP systolic 106–158; BP diastolic 55–107; PULSE 93–135; RESP 13–28; TEMP 37.6; O2SAT 90–97
--- NOTE | 2020-08-10 15:37 | DI.RAD.S_ITS ---
PROCEDURE: XR CHEST 1V INDICATIONS: cough TECHNIQUE: One view of the chest was acquired. COMPARISON: [facility], CR, XR CHEST 1V, 04/07/2020, 15:14. FINDINGS: Surgical changes and devices: None. Lungs and pleura: Lungs are clear. No pleural effusions or pneumothorax. Mediastinum: Mediastinal contours appear normal. Heart size is normal. Bones and chest wall: No suspicious bony lesions. Overlying soft tissues appear unremarkable. IMPRESSION: No evidence acute pulmonary process. Dictated by: Eduardo Elliott M.D. on 08/10/2020 at 16:04 Approved by: Eduardo Elliott M.D. on 08/10/2020 at 16:04
--- NOTE | 2020-08-10 15:39 | DI.RAD.S_ITS ---
PROCEDURE: XR KNEE LT 1TO2V INDICATIONS: L knee pain post fall TECHNIQUE: 2 views of the knee were acquired. COMPARISON: None. FINDINGS: Bones: No fractures or dislocations. No suspicious bony lesions. Soft tissues: No joint effusion. No suspicious soft tissue calcifications. IMPRESSION: No evidence acute bony abnormality of the left knee. If clinical suspicion and/or symptoms persist, further assessment with repeat plain films, or advanced imaging (e.g., CT, MRI, or bone scan) may be helpful for further assessment. Dictated by: Eduardo Elliott M.D. on 08/10/2020 at 16:05 Approved by: Eduardo Elliott M.D. on 08/10/2020 at 16:05
--- NOTE | 2020-08-10 15:46 | ED.ALCOHOL ---
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 Creatinine (0.52-1.04) mg/dL Estimated GFR (>60) mL/min BUN/Creatinine Ratio (6-22) Glucose (70-100) mg/dL Lactate 2.6 H 1.8 (0.7-2.1) mmol/L Calcium (8.4-10.2) mg/dL Magnesium (1.6-2.3) mg/dL Total Bilirubin (0.2-1.3) mg/dL Conjugated Bilirubin (0.0-0.3) md/dL Unconjugated Bilirubin (0.0-1.1) mg/dL AST (14-36) IU/L ALT (<35) IU/L Alkaline Phosphatase (38-126) U/L Total Protein (6.3-8.2) g/dL Albumin (3.5-5.0) g/dL Globulin (1.7-4.1) g/dL Albumin/Globulin Ratio (1.0-2.8) Lipase (23-300) U/L Serum , Qual (Negative) Urine Color Urine Appearance Urine pH (4.5-8.0) Ur Specific [place] (1.000-1.035) Urine Protein (Negative) Urine Glucose (UA) (Negative) g/dL Urine Ketones (NEGATIVE) Urine Occult Blood (Negative) Urine Nitrate (Negative) Urine Bilirubin (NEGATIVE) Urine Urobilinogen (0.2) E.U./dL Ur Leukocyte Esterase (NEGATIVE) Urine RBC (0-5/HPF) Urine WBC (0-5/HPF) Amorphous Sediment Urine Bacteria (None) Ur Culture Indicated? Urine Test (Negative) U Opiates 300ng/mL cut (Negative) Ur Oxycodone Screen (Negative) Urine Methadone Screen (Negative) Ur Barbiturates Screen (Negative) U Tricyclic Antidepress (Negative) Ur Phencyclidine Scrn (Negative) Ur Amphetamines Screen (Negative) U Methamphetamines Scrn (Negative) Ur MDMA Scrn (Ecstasy) (Negative) U Benzodiazepines Scrn (Negative) Urine Cocaine Screen (Negative) U Marijuana (THC) Screen (Negative) Ethyl Alcohol 107 H ( - 10) mg/dL COVID-19 PCR (Negative) Imaging Data Chest x-ray: [facility]: [id number] [place] [address] XRay Report Signed Patient: Dania DuenasR#: [id number] : 1985Acct:[id number] Age/Sex: 35 / FDate of Service: 08/10/20 Loc: ED Accession Number: [id number] Procedure: XR chest 1V Ordering Provider: Maikel Cox PROCEDURE: XR CHEST 1V INDICATIONS: cough TECHNIQUE: One view of the chest was acquired. COMPARISON: [facility], , XR CHEST 1V, 04/07/2020, 15:14. FINDINGS: Surgical changes and devices: None. Lungs and pleura: Lungs are clear. No pleural effusions or pneumothorax. Mediastinum: Mediastinal contours appear normal. Heart size is normal. Bones and chest wall: No suspicious bony lesions. Overlying soft tissues appear unremarkable. IMPRESSION: No evidence acute pulmonary process. Dictated by: Eduardo Elliott M.D. on 08/10/2020 at 16:04 Approved by: Eduardo Elliott M.D. on 08/10/2020 at 16:04 Extremity x-ray #1: [facility]: [place] [address] XRay Report Signed Patient: Dania Duenas R#: [id number] : 1985Acct:[id number] Age/Sex: 35 / FDate of Service: 08/10/20 Loc: ED Accession Number: [id number] Procedure: XR ankle LT min 3V Ordering Provider: Maikel Cox PROCEDURE: XR ANKLE LT MIN 3V INDICATIONS: L ankle pain post fall TECHNIQUE: 3 views of the ankle were acquired. COMPARISON: None. FINDINGS: Bones: No fractures or dislocations. Ankle mortise is normally aligned. No suspicious bony lesions. Soft tissues: No tibiotalar joint effusion. Achilles tendon appears normal. IMPRESSION: No evidence acute bony abnormality of the left ankle. If clinical suspicion and/or symptoms persist, further assessment with repeat plain films, or advanced imaging (e.g., CT, MRI, or bone scan) may be helpful for further assessment. Dictated by: Eduardo Elliott M.D. on 08/10/2020 at 16:05 Approved by: Eduardo Elliott M.D. on 08/10/2020 at 16:05 Extremity x-ray #2: [facility]: [address] [id number] XRay Report Signed Patient: Dania Duenas R#: [id number] : 1985Acct:[id number] Age/Sex: 35 / FDate of Service: 08/10/20 Loc: ED Accession Number: [id number] Procedure: XR knee LT 3V Ordering Provider: Maikel Cox PROCEDURE: XR KNEE LT 1TO2V INDICATIONS: L knee pain post fall TECHNIQUE: 2 views of the knee were acquired. COMPARISON: None. FINDINGS: Bones: No fractures or dislocations. No suspicious bony lesions. Soft tissues: No joint effusion. No suspicious soft tissue calcifications. IMPRESSION: No evidence acute bony abnormality of the left knee. If clinical suspicion and/or symptoms persist, further assessment with repeat plain films, or advanced imaging (e.g., CT, MRI, or bone scan) may be helpful for further assessment. Dictated by: Eduardo Elliott M.D. on 08/10/2020 at 16:05 Approved by: Eduardo Elliott M.D. on 08/10/2020 at 16:05 CT scan - head: [facility]: [address] [id number] [address] Scan Report Signed Patient: Dania Duenas R#: [id number] : 1985Acct:[id number] Age/Sex: 35 / FDate of Service: 08/10/20 Loc: ED Accession Number: [id number] Procedure: CT head/brain wo con Ordering Provider: Maikel Cox PROCEDURE: CT HEAD/BRAIN WO CON INDICATIONS: EtOH possible fall TECHNIQUE: Noncontrast 4.5 mm thick angled axial sections acquired from the foramen magnum to the vertex, with coronal and sagittal reformats. For radiation dose reduction, the following was used: automated exposure control, adjustment of mA and/or kV according to patient size. COMPARISON: None. FINDINGS: Image quality: Excellent. CSF spaces: Basal cisterns are patent. No extra-axial fluid collections. Ventricles are normal in size and shape. Brain: No midline shift. No intracranial masses or hemorrhage. Veloz-white matter interface is normal. Skull and face: Calvarium and visualized facial bones are intact, without suspicious lesions. Sinuses: Visualized sinuses and mastoids are clear. IMPRESSION: No acute intracranial abnormality. Dictated by: Juan Hodges M.D. on 08/10/2020 at 16:14 Approved by: Juan Hodges M.D. on 08/10/2020 at 16:17 ECG Data Interpretation: 1520: Sinus tachycardia, rate 117, GA interval 150, QTC 471. No ST elevation or ST depression. No T-wave abnormality. No ectopy. Significant artifact noted in V3. EKG also viewed by Dr. Palencia per protocol. MDM Narrative Medical decision making narrative: 35-year-old female with history of alcohol abuse, presents to the ED intoxicated, reporting cough and continued vomiting over the past week. Requesting alcohol detox. Patient is clearly intoxicated, ETOH level greater than 500. Patient initially had a CIWA score of 10, upon re-evaluation towards the end of my shift, CIWA score elevated to 17, Ativan was given to avoid withdrawals. Initially ondansetron controlled nausea vomiting. Patient initially presented with tachycardia, rate decreased after administration of fluids. Tachycardia return with increased withdrawal symptoms, reduced with Ativan administration. Patient continues to appear intoxicated but continues to request detox. Discussed findings with Dr. Palencia. Additional fluid ordered, banana bag ordered, plan for patient is to metabolize and find a detox acceptance center. CT, and left lower extremity x-rays taken due to the fact that patient did report a fall. She does not think that she hit her head but as she is intoxicated, CT head was ordered. Negative for any concerning fractures or intracranial etiology. Sign-out given to Dr. Jewell at 2028 for further evaluation. <Daryl Jewell MD - Last Filed: 08/19/20 10:58> Lab Data Labs: Lab Results 08/10/20 08/10/20 08/10/20 Range/Units 15:48 15:48 15:48 WBC 9.0 (4.5-11.0) X10^3/uL RBC 4.82 (4.0-5.2) X10^6/uL Hgb 16.5 H (12.0-16.0) g/dL Hct 47.9 H (36-46) % MCV 99.4 (80-100) fL MCH 34.2 H (26-34) PG MCHC 34.4 (30-36) % RDW 14.0 (11.6-14.8) % Plt Count 240 (150-400) X10^3/uL Neut % (Auto) 66.8 (50-75) % Lymph % (Auto) 27.8 (25-40) % [place] % (Auto) 4.7 (3-14) % Eos % (Auto) 0.1 L (2-4) % Baso % (Auto) 0.6 (0-2) % Neut # (Auto) 6000 (2456-4546) /uL Lymph # (Auto) 2500 (3905-5840) /uL [place] # (Auto) 400 (0-900) /uL Eos # (Auto) 0 (0-450) /uL Baso # (Auto) 100 (0-100) /uL Sodium 141 (137-145) mmol/L Potassium 4.0 (3.4-5.1) mmol/L Chloride 101 (98-107) mmol/L Carbon Dioxide 31 (22-32) mmol/L BUN 6 L (7-17) mg/dL Creatinine 0.52 (0.52-1.04) mg/dL Estimated GFR > 60.0 (>60) mL/min BUN/Creatinine Ratio 11.5 (6-22) Glucose 113 H (70-100) mg/dL Lactate (0.7-2.1) mmol/L Calcium 8.7 (8.4-10.2) mg/dL Magnesium 2.1 (1.6-2.3) mg/dL Total Bilirubin 0.6 (0.2-1.3) mg/dL Conjugated Bilirubin 0.0 (0.0-0.3) md/dL Unconjugated Bilirubin 0.5 (0.0-1.1) mg/dL AST 123 H (14-36) IU/L ALT 121 H (<35) IU/L Alkaline Phosphatase 103 (38-126) U/L Total Protein 8.3 H (6.3-8.2) g/dL Albumin 4.8 (3.5-5.0) g/dL Globulin 3.5 (1.7-4.1) g/dL Albumin/Globulin Ratio 1.4 (1.0-2.8) Lipase 208 (23-300) U/L Serum , Qual Negative (Negative) Urine Color Urine Appearance Urine pH (4.5-8.0) Ur Specific [place] (1.000-1.035) Urine Protein (Negative) Urine Glucose (UA) (Negative) g/dL Urine Ketones (NEGATIVE) Urine Occult Blood (Negative) Urine Nitrate (Negative) Urine Bilirubin (NEGATIVE) Urine Urobilinogen (0.2) E.U./dL Ur Leukocyte Esterase (NEGATIVE) Urine RBC (0-5/HPF) Urine WBC (0-5/HPF) Amorphous Sediment Urine Bacteria (None) Ur Culture Indicated? Urine Test (Negative) U Opiates 300ng/mL cut (Negative) Ur Oxycodone Screen (Negative) Urine Methadone Screen (Negative) Ur Barbiturates Screen (Negative) U Tricyclic Antidepress (Negative) Ur Phencyclidine Scrn (Negative) Ur Amphetamines Screen (Negative) U Methamphetamines Scrn (Negative) Ur MDMA Scrn (Ecstasy) (Negative) U Benzodiazepines Scrn (Negative) Urine Cocaine Screen (Negative) U Marijuana (THC) Screen (Negative) Ethyl Alcohol 512 H* ( - 10) mg/dL COVID-19 PCR (Negative) 08/10/20 08/10/20 08/10/20 Range/Units 15:48 16:15 16:30 WBC (4.5-11.0) X10^3/uL RBC (4.0-5.2) X10^6/uL Hgb (12.0-16.0) g/dL Hct (36-46) % MCV (80-100) fL MCH (26-34) PG MCHC (30-36) % RDW (11.6-14.8) % Plt Count (150-400) X10^3/uL Neut % (Auto) (50-75) % Lymph % (Auto) (25-40) % [place] % (Auto) (3-14) % Eos % (Auto) (2-4) % Baso % (Auto) (0-2) % Neut # (Auto) (6436-4720) /uL Lymph # (Auto) (1921-2461) /uL [place] # (Auto) (0-900) /uL Eos # (Auto) (0-450) /uL Baso # (Auto) (0-100) /uL Sodium (137-145) mmol/L Potassium (3.4-5.1) mmol/L Chloride (98-107) mmol/L Carbon Dioxide (22-32) mmol/L BUN (7-17) mg/dL Creatinine (0.52-1.04) mg/dL Estimated GFR (>60) mL/min BUN/Creatinine Ratio (6-22) Glucose (70-100) mg/dL Lactate 2.7 H (0.7-2.1) mmol/L Calcium (8.4-10.2) mg/dL Magnesium (1.6-2.3) mg/dL Total Bilirubin (0.2-1.3) mg/dL Conjugated Bilirubin (0.0-0.3) md/dL Unconjugated Bilirubin (0.0-1.1) mg/dL AST (14-36) IU/L ALT (<35) IU/L Alkaline Phosphatase (38-126) U/L Total Protein (6.3-8.2) g/dL Albumin (3.5-5.0) g/dL Globulin (1.7-4.1) g/dL Albumin/Globulin Ratio (1.0-2.8) Lipase (23-300) U/L Serum , Qual (Negative) Urine Color Urine Appearance Urine pH (4.5-8.0) Ur Specific [place] (1.000-1.035) Urine Protein (Negative) Urine Glucose (UA) (Negative) g/dL Urine Ketones (NEGATIVE) Urine Occult Blood (Negative) Urine Nitrate (Negative) Urine Bilirubin (NEGATIVE) Urine Urobilinogen (0.2) E.U./dL Ur Leukocyte Esterase (NEGATIVE) Urine RBC (0-5/HPF) Urine WBC (0-5/HPF) Amorphous Sediment Urine Bacteria (None) Ur Culture Indicated? Urine Test (Negative) U Opiates 300ng/mL cut Negative (Negative) Ur Oxycodone Screen Negative (Negative) Urine Methadone Screen Negative (Negative) Ur Barbiturates Screen Negative (Negative) U Tricyclic Antidepress Negative (Negative) Ur Phencyclidine Scrn Negative (Negative) Ur Amphetamines Screen Negative (Negative) U Methamphetamines Scrn Negative (Negative) Ur MDMA Scrn (Ecstasy) Negative (Negative) U Benzodiazepines Scrn Negative (Negative) Urine Cocaine Screen Negative (Negative) U Marijuana (THC) Screen Negative (Negative) Ethyl Alcohol ( - 10) mg/dL COVID-19 PCR Negative (Negative) 08/10/20 08/10/20 08/10/20 Range/Units 16:30 16:30 16:30 WBC (4.5-11.0) X10^3/uL RBC (4.0-5.2) X10^6/uL Hgb (12.0-16.0) g/dL Hct (36-46) % MCV (80-100) fL MCH (26-34) PG MCHC (30-36) % RDW (11.6-14.8) % Plt Count (150-400) X10^3/uL Neut % (Auto) (50-75) % Lymph % (Auto) (25-40) % [place] % (Auto) (3-14) % Eos % (Auto) (2-4) % Baso % (Auto) (0-2) % Neut # (Auto) (1735-8557) /uL Lymph # (Auto) (1336-7284) /uL [place] # (Auto) (0-900) /uL Eos # (Auto) (0-450) /uL Baso # (Auto) (0-100) /uL Sodium (137-145) mmol/L Potassium (3.4-5.1) mmol/L Chloride (98-107) mmol/L Carbon Dioxide (22-32) mmol/L BUN (7-17) mg/dL Creatinine (0.52-1.04) mg/dL Estimated GFR (>60) mL/min BUN/Creatinine Ratio (6-22) Glucose (70-100) mg/dL Lactate (0.7-2.1) mmol/L Calcium (8.4-10.2) mg/dL Magnesium (1.6-2.3) mg/dL Total Bilirubin (0.2-1.3) mg/dL Conjugated Bilirubin (0.0-0.3) md/dL Unconjugated Bilirubin (0.0-1.1) mg/dL AST (14-36) IU/L ALT (<35) IU/L Alkaline Phosphatase (38-126) U/L Total Protein (6.3-8.2) g/dL Albumin (3.5-5.0) g/dL Globulin (1.7-4.1) g/dL Albumin/Globulin Ratio (1.0-2.8) Lipase (23-300) U/L Serum , Qual (Negative) Urine Color Yellow Urine Appearance Clear Urine pH 6.5 (4.5-8.0) Ur Specific [place] <=1.005 (1.000-1.035) Urine Protein Negative (Negative) Urine Glucose (UA) Negative (Negative) g/dL Urine Ketones Negative (NEGATIVE) Urine Occult Blood 1+ H (Negative) Urine Nitrate Negative (Negative) Urine Bilirubin Negative (NEGATIVE) Urine Urobilinogen 0.2 (0.2) E.U./dL Ur Leukocyte Esterase Negative (NEGATIVE) Urine RBC None seen (0-5/HPF) Urine WBC None seen (0-5/HPF) Amorphous Sediment 1+ Urine Bacteria None seen (None) Ur Culture Indicated? Cult not indicated Urine Test Negative (Negative) U Opiates 300ng/mL cut Cancelled (Negative) Ur Oxycodone Screen Cancelled (Negative) Urine Methadone Screen Cancelled (Negative) Ur Barbiturates Screen Cancelled (Negative) U Tricyclic Antidepress Cancelled (Negative) Ur Phencyclidine Scrn Cancelled (Negative) Ur Amphetamines Screen Cancelled (Negative) U Methamphetamines Scrn Cancelled (Negative) Ur MDMA Scrn (Ecstasy) Cancelled (Negative) U Benzodiazepines Scrn Cancelled (Negative) Urine Cocaine Screen Cancelled (Negative) U Marijuana (THC) Screen Cancelled (Negative) Ethyl Alcohol ( - 10) mg/dL COVID-19 PCR (Negative) 08/10/20 08/11/20 08/11/20 Range/Units 18:03 05:51 05:51 WBC (4.5-11.0) X10^3/uL RBC (4.0-5.2) X10^6/uL Hgb (12.0-16.0) g/dL Hct (36-46) % MCV (80-100) fL MCH (26-34) PG MCHC (30-36) % RDW (11.6-14.8) % Plt Count (150-400) X10^3/uL Neut % (Auto) (50-75) % Lymph % (Auto) (25-40) % [place] % (Auto) (3-14) % Eos % (Auto) (2-4) % Baso % (Auto) (0-2) % Neut # (Auto) (8364-0227) /uL Lymph # (Auto) (0328-2254) /uL [place] # (Auto) (0-900) /uL Eos # (Auto) (0-450) /uL Baso # (Auto) (0-100) /uL Sodium (137-145) mmol/L Potassium (3.4-5.1) mmol/L Chloride (98-107) mmol/L Carbon Dioxide (22-32) mmol/L BUN (7-17) mg/dL Creatinine (0.52-1.04) mg/dL Estimated GFR (>60) mL/min BUN/Creatinine Ratio (6-22) Glucose (70-100) mg/dL Lactate 2.6 H 1.8 (0.7-2.1) mmol/L Calcium (8.4-10.2) mg/dL Magnesium (1.6-2.3) mg/dL Total Bilirubin (0.2-1.3) mg/dL Conjugated Bilirubin (0.0-0.3) md/dL Unconjugated Bilirubin (0.0-1.1) mg/dL AST (14-36) IU/L ALT (<35) IU/L Alkaline Phosphatase (38-126) U/L Total Protein (6.3-8.2) g/dL Albumin (3.5-5.0) g/dL Globulin (1.7-4.1) g/dL Albumin/Globulin Ratio (1.0-2.8) Lipase (23-300) U/L Serum , Qual (Negative) Urine Color Urine Appearance Urine pH (4.5-8.0) Ur Specific [place] (1.000-1.035) Urine Protein (Negative) Urine Glucose (UA) (Negative) g/dL Urine Ketones (NEGATIVE) Urine Occult Blood (Negative) Urine Nitrate (Negative) Urine Bilirubin (NEGATIVE) Urine Urobilinogen (0.2) E.U./dL Ur Leukocyte Esterase (NEGATIVE) Urine RBC (0-5/HPF) Urine WBC (0-5/HPF) Amorphous Sediment Urine Bacteria (None) Ur Culture Indicated? Urine Test (Negative) U Opiates 300ng/mL cut (Negative) Ur Oxycodone Screen (Negative) Urine Methadone Screen (Negative) Ur Barbiturates Screen (Negative) U Tricyclic Antidepress (Negative) Ur Phencyclidine Scrn (Negative) Ur Amphetamines Screen (Negative) U Methamphetamines Scrn (Negative) Ur MDMA Scrn (Ecstasy) (Negative) U Benzodiazepines Scrn (Negative) Urine Cocaine Screen (Negative) U Marijuana (THC) Screen (Negative) Ethyl Alcohol 107 H ( - 10) mg/dL COVID-19 PCR (Negative) <Iggy Palencia, DO - Last Filed: 08/11/20 19:21> Lab Data Labs: Lab Results 08/10/20 08/10/20 08/10/20 Range/Units 15:48 15:48 15:48 WBC 9.0 (4.5-11.0) X10^3/uL RBC 4.82 (4.0-5.2) X10^6/uL Hgb 16.5 H (12.0-16.0) g/dL Hct 47.9 H (36-46) % MCV 99.4 (80-100) fL MCH 34.2 H (26-34) PG MCHC 34.4 (30-36) % RDW 14.0 (11.6-14.8) % Plt Count 240 (150-400) X10^3/uL Neut % (Auto) 66.8 (50-75) % Lymph % (Auto) 27.8 (25-40) % [place] % (Auto) 4.7 (3-14) % Eos % (Auto) 0.1 L (2-4) % Baso % (Auto) 0.6 (0-2) % Neut # (Auto) 6000 (0999-3725) /uL Lymph # (Auto) 2500 (3580-8963) /uL [place] # (Auto) 400 (0-900) /uL Eos # (Auto) 0 (0-450) /uL Baso # (Auto) 100 (0-100) /uL Sodium 141 (137-145) mmol/L Potassium 4.0 (3.4-5.1) mmol/L Chloride 101 (98-107) mmol/L Carbon Dioxide 31 (22-32) mmol/L BUN 6 L (7-17) mg/dL Creatinine 0.52 (0.52-1.04) mg/dL Estimated GFR > 60.0 (>60) mL/min BUN/Creatinine Ratio 11.5 (6-22) Glucose 113 H (70-100) mg/dL Lactate (0.7-2.1) mmol/L Calcium 8.7 (8.4-10.2) mg/dL Magnesium 2.1 (1.6-2.3) mg/dL Total Bilirubin 0.6 (0.2-1.3) mg/dL Conjugated Bilirubin 0.0 (0.0-0.3) md/dL Unconjugated Bilirubin 0.5 (0.0-1.1) mg/dL AST 123 H (14-36) IU/L ALT 121 H (<35) IU/L Alkaline Phosphatase 103 (38-126) U/L Total Protein 8.3 H (6.3-8.2) g/dL Albumin 4.8 (3.5-5.0) g/dL Globulin 3.5 (1.7-4.1) g/dL Albumin/Globulin Ratio 1.4 (1.0-2.8) Lipase 208 (23-300) U/L Serum , Qual Negative (Negative) Urine Color Urine Appearance Urine pH (4.5-8.0) Ur Specific [place] (1.000-1.035) Urine Protein (Negative) Urine Glucose (UA) (Negative) g/dL Urine Ketones (NEGATIVE) Urine Occult Blood (Negative) Urine Nitrate (Negative) Urine Bilirubin (NEGATIVE) Urine Urobilinogen (0.2) E.U./dL Ur Leukocyte Esterase (NEGATIVE) Urine RBC (0-5/HPF) Urine WBC (0-5/HPF) Amorphous Sediment Urine Bacteria (None) Ur Culture Indicated? Urine Test (Negative) U Opiates 300ng/mL cut (Negative) Ur Oxycodone Screen (Negative) Urine Methadone Screen (Negative) Ur Barbiturates Screen (Negative) U Tricyclic Antidepress (Negative) Ur Phencyclidine Scrn (Negative) Ur Amphetamines Screen (Negative) U Methamphetamines Scrn (Negative) Ur MDMA Scrn (Ecstasy) (Negative) U Benzodiazepines Scrn (Negative) Urine Cocaine Screen (Negative) U Marijuana (THC) Screen (Negative) Ethyl Alcohol 512 H* ( - 10) mg/dL COVID-19 PCR (Negative) 08/10/20 08/10/20 08/10/20 Range/Units 15:48 16:15 16:30 WBC (4.5-11.0) X10^3/uL RBC (4.0-5.2) X10^6/uL Hgb (12.0-16.0) g/dL Hct (36-46) % MCV (80-100) fL MCH (26-34) PG MCHC (30-36) % RDW (11.6-14.8) % Plt Count (150-400) X10^3/uL Neut % (Auto) (50-75) % Lymph % (Auto) (25-40) % [place] % (Auto) (3-14) % Eos % (Auto) (2-4) % Baso % (Auto) (0-2) % Neut # (Auto) (0196-5479) /uL Lymph # (Auto) (3554-4274) /uL [place] # (Auto) (0-900) /uL Eos # (Auto) (0-450) /uL Baso # (Auto) (0-100) /uL Sodium (137-145) mmol/L Potassium (3.4-5.1) mmol/L Chloride (98-107) mmol/L Carbon Dioxide (22-32) mmol/L BUN (7-17) mg/dL Creatinine (0.52-1.04) mg/dL Estimated GFR (>60) mL/min BUN/Creatinine Ratio (6-22) Glucose (70-100) mg/dL Lactate 2.7 H (0.7-2.1) mmol/L Calcium (8.4-10.2) mg/dL Magnesium (1.6-2.3) mg/dL Total Bilirubin (0.2-1.3) mg/dL Conjugated Bilirubin (0.0-0.3) md/dL Unconjugated Bilirubin (0.0-1.1) mg/dL AST (14-36) IU/L ALT (<35) IU/L Alkaline Phosphatase (38-126) U/L Total Protein (6.3-8.2) g/dL Albumin (3.5-5.0) g/dL Globulin (1.7-4.1) g/dL Albumin/Globulin Ratio (1.0-2.8) Lipase (23-300) U/L Serum , Qual (Negative) Urine Color Urine Appearance Urine pH (4.5-8.0) Ur Specific [place] (1.000-1.035) Urine Protein (Negative) Urine Glucose (UA) (Negative) g/dL Urine Ketones (NEGATIVE) Urine Occult Blood (Negative) Urine Nitrate (Negative) Urine Bilirubin (NEGATIVE) Urine Urobilinogen (0.2) E.U./dL Ur Leukocyte Esterase (NEGATIVE) Urine RBC (0-5/HPF) Urine WBC (0-5/HPF) Amorphous Sediment Urine Bacteria (None) Ur Culture Indicated? Urine Test (Negative) U Opiates 300ng/mL cut Negative (Negative) Ur Oxycodone Screen Negative (Negative) Urine Methadone Screen Negative (Negative) Ur Barbiturates Screen Negative (Negative) U Tricyclic Antidepress Negative (Negative) Ur Phencyclidine Scrn Negative (Negative) Ur Amphetamines Screen Negative (Negative) U Methamphetamines Scrn Negative (Negative) Ur MDMA Scrn (Ecstasy) Negative (Negative) U Benzodiazepines Scrn Negative (Negative) Urine Cocaine Screen Negative (Negative) U Marijuana (THC) Screen Negative (Negative) Ethyl Alcohol ( - 10) mg/dL COVID-19 PCR Negative (Negative) 08/10/20 08/10/20 08/10/20 Range/Units 16:30 16:30 16:30 WBC (4.5-11.0) X10^3/uL RBC (4.0-5.2) X10^6/uL Hgb (12.0-16.0) g/dL Hct (36-46) % MCV (80-100) fL MCH (26-34) PG MCHC (30-36) % RDW (11.6-14.8) % Plt Count (150-400) X10^3/uL Neut % (Auto) (50-75) % Lymph % (Auto) (25-40) % [place] % (Auto) (3-14) % Eos % (Auto) (2-4) % Baso % (Auto) (0-2) % Neut # (Auto) (9568-5147) /uL Lymph # (Auto) (0846-9794) /uL [place] # (Auto) (0-900) /uL Eos # (Auto) (0-450) /uL Baso # (Auto) (0-100) /uL Sodium (137-145) mmol/L Potassium (3.4-5.1) mmol/L Chloride (98-107) mmol/L Carbon Dioxide (22-32) mmol/L BUN (7-17) mg/dL Creatinine (0.52-1.04) mg/dL Estimated GFR (>60) mL/min BUN/Creatinine Ratio (6-22) Glucose (70-100) mg/dL Lactate (0.7-2.1) mmol/L Calcium (8.4-10.2) mg/dL Magnesium (1.6-2.3) mg/dL Total Bilirubin (0.2-1.3) mg/dL Conjugated Bilirubin (0.0-0.3) md/dL Unconjugated Bilirubin (0.0-1.1) mg/dL AST (14-36) IU/L ALT (<35) IU/L Alkaline Phosphatase (38-126) U/L Total Protein (6.3-8.2) g/dL Albumin (3.5-5.0) g/dL Globulin (1.7-4.1) g/dL Albumin/Globulin Ratio (1.0-2.8) Lipase (23-300) U/L Serum , Qual (Negative) Urine Color Yellow Urine Appearance Clear Urine pH 6.5 (4.5-8.0) Ur Specific [place] <=1.005 (1.000-1.035) Urine Protein Negative (Negative) Urine Glucose (UA) Negative (Negative) g/dL Urine Ketones Negative (NEGATIVE) Urine Occult Blood 1+ H (Negative) Urine Nitrate Negative (Negative) Urine Bilirubin Negative (NEGATIVE) Urine Urobilinogen 0.2 (0.2) E.U./dL Ur Leukocyte Esterase Negative (NEGATIVE) Urine RBC None seen (0-5/HPF) Urine WBC None seen (0-5/HPF) Amorphous Sediment 1+ Urine Bacteria None seen (None) Ur Culture Indicated? Cult not indicated Urine Test Negative (Negative) U Opiates 300ng/mL cut Cancelled (Negative) Ur Oxycodone Screen Cancelled (Negative) Urine Methadone Screen Cancelled (Negative) Ur Barbiturates Screen Cancelled (Negative) U Tricyclic Antidepress Cancelled (Negative) Ur Phencyclidine Scrn Cancelled (Negative) Ur Amphetamines Screen Cancelled (Negative) U Methamphetamines Scrn Cancelled (Negative) Ur MDMA Scrn (Ecstasy) Cancelled (Negative) U Benzodiazepines Scrn Cancelled (Negative) Urine Cocaine Screen Cancelled (Negative) U Marijuana (THC) Screen Cancelled (Negative) Ethyl Alcohol ( - 10) mg/dL COVID-19 PCR (Negative) 08/10/20 08/11/20 08/11/20 Range/Units 18:03 05:51 05:51 WBC (4.5-11.0) X10^3/uL RBC (4.0-5.2) X10^6/uL Hgb (12.0-16.0) g/dL Hct (36-46) % MCV (80-100) fL MCH (26-34) PG MCHC (30-36) % RDW (11.6-14.8) % Plt Count (150-400) X10^3/uL Neut % (Auto) (50-75) % Lymph % (Auto) (25-40) % [place] % (Auto) (3-14) % Eos % (Auto) (2-4) % Baso % (Auto) (0-2) % Neut # (Auto) (1591-6675) /uL Lymph # (Auto) (9650-2465) /uL [place] # (Auto) (0-900) /uL Eos # (Auto) (0-450) /uL Baso # (Auto) (0-100) /uL Sodium (137-145) mmol/L Potassium (3.4-5.1) mmol/L Chloride (98-107) mmol/L Carbon Dioxide (22-32) mmol/L BUN (7-17) mg/dL Creatinine (0.52-1.04) mg/dL Estimated GFR (>60) mL/min BUN/Creatinine Ratio (6-22) Glucose (70-100) mg/dL Lactate 2.6 H 1.8 (0.7-2.1) mmol/L Calcium (8.4-10.2) mg/dL Magnesium (1.6-2.3) mg/dL Total Bilirubin (0.2-1.3) mg/dL Conjugated Bilirubin (0.0-0.3) md/dL Unconjugated Bilirubin (0.0-1.1) mg/dL AST (14-36) IU/L ALT (<35) IU/L Alkaline Phosphatase (38-126) U/L Total Protein (6.3-8.2) g/dL Albumin (3.5-5.0) g/dL Globulin (1.7-4.1) g/dL Albumin/Globulin Ratio (1.0-2.8) Lipase (23-300) U/L Serum , Qual (Negative) Urine Color Urine Appearance Urine pH (4.5-8.0) Ur Specific [place] (1.000-1.035) Urine Protein (Negative) Urine Glucose (UA) (Negative) g/dL Urine Ketones (NEGATIVE) Urine Occult Blood (Negative) Urine Nitrate (Negative) Urine Bilirubin (NEGATIVE) Urine Urobilinogen (0.2) E.U./dL Ur Leukocyte Esterase (NEGATIVE) Urine RBC (0-5/HPF) Urine WBC (0-5/HPF) Amorphous Sediment Urine Bacteria (None) Ur Culture Indicated? Urine Test (Negative) U Opiates 300ng/mL cut (Negative) Ur Oxycodone Screen (Negative) Urine Methadone Screen (Negative) Ur Barbiturates Screen (Negative) U Tricyclic Antidepress (Negative) Ur Phencyclidine Scrn (Negative) Ur Amphetamines Screen (Negative) U Methamphetamines Scrn (Negative) Ur MDMA Scrn (Ecstasy) (Negative) U Benzodiazepines Scrn (Negative) Urine Cocaine Screen (Negative) U Marijuana (THC) Screen (Negative) Ethyl Alcohol 107 H ( - 10) mg/dL COVID-19 PCR (Negative) MDM Narrative Medical decision making narrative: Dr palencia: Received turned over from night provider. Patient has been stable and calm overnight. Requiring a couple doses of Ativan overnight which seems to keep her symptoms under control for the most part. I did talk to her in the morning in she stated that she was still interested in alcohol detox. She tolerated breakfast and lunch. She was occasionally needing Ativan throughout the day for some shaking and some tachycardia. 1 mg of Ativan seem to control her symptoms for the most part and did last her several hours. Patient was evaluated by social Work. She was still willing to be sent to a detox facility. A bed at [facility] was available for the patient and she was willing to go. She did have 1 episode of nausea in the afternoon which was improved with the Zofran. She was also given a nicotine patch. Will discharge her with a prescription for Ativan and Zofran to take with her to be taken at the detox facility. I do feel that she is stable for transport as she has been stable and fairly low doses of Ativan and I feel that this will control her symptoms. Discharge Plan Departure Patient Disposition: Home Clinical Impression: Alcoholic intoxication Qualifiers: Complication of substance-induced condition: with unspecified complication Qualified Code(s): F10.929 - Alcohol use, unspecified with intoxication, unspecified Alcohol withdrawal Qualifiers: Complication of substance-induced condition: with unspecified complication Qualified Code(s): F10.239 - Alcohol dependence with withdrawal, unspecified Instructions: DI for Drug or Alcohol Withdrawal Activity Restrictions/Additional Instructions: You are being discharged from the emergency department to go to the [facility]. The medications that your being given are to be administered while your there as directed for symptoms. No driving for the next 24 hours. Return to the emergency department for any new or worsening symptoms Prescriptions: New ondansetron 4 mg tablet,disintegrating 4 mg PO Q6H PRN (Reason: nausea and vomiting) Qty: 10 RF: 0 lorazepam [Ativan] 1 mg tablet 1 mg PO DAILY PRN (Reason: alcohol withdrawal) Qty: 9 RF: 0 No Action chlordiazepoxide HCl 25 mg capsule See Rx Instructions .ROUTE .COMPLEX PRN (Reason: alcohol withdrawal) Qty: 32 RF: 0 <Daryl Jewell MD - Last Filed: 08/19/20 10:58> [facility]: I was immediately available in the department for consultation. This documentation has been reviewed and I agree with assessment and plan. Supervised by Daryl Jewell MD
--- NOTE | 2020-08-10 15:50 | DI.RAD.S_ITS ---
PROCEDURE: XR ANKLE LT MIN 3V INDICATIONS: L ankle pain post fall TECHNIQUE: 3 views of the ankle were acquired. COMPARISON: None. FINDINGS: Bones: No fractures or dislocations. Ankle mortise is normally aligned. No suspicious bony lesions. Soft tissues: No tibiotalar joint effusion. Achilles tendon appears normal. IMPRESSION: No evidence acute bony abnormality of the left ankle. If clinical suspicion and/or symptoms persist, further assessment with repeat plain films, or advanced imaging (e.g., CT, MRI, or bone scan) may be helpful for further assessment. Dictated by: Eduardo Elliott M.D. on 08/10/2020 at 16:05 Approved by: Eduardo Elliott M.D. on 08/10/2020 at 16:05
--- NOTE | 2020-08-10 15:50 | DI.CT.S_ITS ---
PROCEDURE: CT HEAD/BRAIN WO CON INDICATIONS: EtOH possible fall TECHNIQUE: Noncontrast 4.5 mm thick angled axial sections acquired from the foramen magnum to the vertex, with coronal and sagittal reformats. For radiation dose reduction, the following was used: automated exposure control, adjustment of mA and/or kV according to patient size. COMPARISON: None. FINDINGS: Image quality: Excellent. CSF spaces: Basal cisterns are patent. No extra-axial fluid collections. Ventricles are normal in size and shape. Brain: No midline shift. No intracranial masses or hemorrhage. Veloz-white matter interface is normal. Skull and face: Calvarium and visualized facial bones are intact, without suspicious lesions. Sinuses: Visualized sinuses and mastoids are clear. IMPRESSION: No acute intracranial abnormality. Dictated by: Juan Hodges M.D. on 08/10/2020 at 16:14 Approved by: Juan Hodges M.D. on 08/10/2020 at 16:17
[2020-08-10 16:04] LABS: Add Manual Diff / Slide Review NO; Basophils Absolute Auto 100 /uL (0-100); Basophils Percent Auto 0.6 % (0-2); Eosinophils Absolute Auto 0 /uL (0-450); Eosinophils Percent Auto 0.1 % (2-4); Hematocrit 47.9 % (36-46); Hemoglobin 16.5 g/dL (12.0-16.0); Lymphocytes Absolute Auto 2500 /uL (1100-4500); Lymphocytes Percent Auto 27.8 % (25-40); Mean Corpuscular HGB Conc 34.4 % (30-36); Mean Corpuscular Hemoglobin 34.2 PG (26-34); Mean Corpuscular Volume 99.4 fL (80-100); Monocytes Absolute Auto 400 /uL (0-900); Monocytes Percent Auto 4.7 % (3-14); Neutrophils Absolute Auto 6000 /uL (1500-7000); Neutrophils Percent Auto 66.8 % (50-75); Platelet Count 240 X10^3/uL (150-400); Red Blood Cell Count 4.82 X10^6/uL (4.0-5.2)
[2020-08-10 16:11] LABS: Lactate (Lactic Acid) 2.7 mmol/L (0.7-2.1)
[2020-08-10 16:13] LABS: Alanine Aminotransferase 121 IU/L (<35); Albumin 4.8 g/dL (3.5-5.0); Albumin Globulin Ratio 1.4 (1.0-2.8); Alkaline Phosphatase 103 U/L (38-126); Aspartate Aminotransferase 123 IU/L (14-36); BUN Creatinine Ratio 11.5 (6-22); Bilirubin Total 0.6 mg/dL (0.2-1.3); Bilirubin Unconjugated 0.5 mg/dL (0.0-1.1); Blood Urea Nitrogen 6 mg/dL (7-17); Calcium 8.7 mg/dL (8.4-10.2); Carbon Dioxide 31 mmol/L (22-32); Chloride 101 mmol/L (98-107); Estimated Glomerular Filt Rate > 60.0 mL/min (>60); Globulin 3.5 g/dL (1.7-4.1); Glucose 113 mg/dL (70-100); HEMOLYSIS < 15 (0-50); Lipase 208 U/L (23-300); Magnesium 2.1 mg/dL (1.6-2.3); Sodium 141 mmol/L (137-145); Total Protein 8.3 g/dL (6.3-8.2)
[2020-08-10] MEDS: SODIUM CHLORIDE 0.9% 1,000 ML 1000 ML IV ×2 (16:13→17:44)
[2020-08-10] MEDS: ONDANSETRON 4 MG/2 ML INJ IV ×2 (16:13→19:25)
[2020-08-10 16:19] LABS: Pregnancy Test Serum,Qual Negative (Negative)
[2020-08-10 16:27] LABS: Ethanol (ETOH) 512 mg/dL
[2020-08-10 16:40] LABS: Bacteria Urine None Seen; RBC Urine None Seen (0-5/HPF); WBC Urine None Seen (0-5/HPF)
[2020-08-10 16:44] LABS: Appearance Urine UA CLEAR; Bilirubin Urine UA NEGATIVE (NEGATIVE); Color Urine UA YELLOW; Glucose Urine UA NEGATIVE (Negative); Ketones Urine UA NEGATIVE (NEGATIVE); Leukocyte Esterase Urine UA NEGATIVE (NEGATIVE); Nitrite Urine UA NEGATIVE (Negative); Occult Blood Urine UA 1+ (Negative); Protein Urine UA NEGATIVE (Negative); Specific Gravity Urine UA <=1.005 (1.000-1.035); Urobilinogen Urine UA 0.2 E.U./dL (0.2)
[2020-08-10 16:48] LABS: pH Urine UA 6.5 (4.5-8.0)
[2020-08-10 16:53] LABS: Pregnancy Test Urine Negative (Negative); UR Morphine/Opiate cutoff 300 Negative (Negative); Ur Creatinine Normal (Normal); Ur Specific Gravity Normal (Normal); Urine Amphetamines Negative (Negative); Urine Barbiturates Negative (Negative); Urine Benzodiazepines Negative (Negative); Urine Cocaine Negative (Negative); Urine MDMA Negative (Negative); Urine Methadone Negative (Negative); Urine Methamphetamines Negative (Negative); Urine Oxycodone Negative (Negative); Urine Phencyclidine Negative (Negative); Urine Tetrahydrocannabinol Negative (Negative); Urine Tricyclic Antidepressant Negative (Negative); Urine pH Normal (Normal)
[2020-08-10 16:55] LABS: COVID19 -Nasal RAPID Negative (Negative)
[2020-08-10 16:55] LABS: Amorphous Sediment Urine 1+; Culture Indicated Urine Cult Not Indicated
[2020-08-10] MEDS: MAGNESIUM SULFATE 2 GM, FOLIC ACID 1 MG, THIAMINE 100 MG, MULTIVITAMIN 10 ML in SODIUM ... IV (17:43)
[2020-08-10 17:54] LABS: Reflexed Lactate in 2 Hours Y
[2020-08-10 18:25] LABS: Lactate 2HR (Lactic Acid Rflx) 2.6 mmol/L (0.7-2.1)
[2020-08-10] MEDS: LORazepam 2 MG/ML INJ 1 MG IV ×2 (19:25→21:35)
[2020-08-11] VITALS (47 sets, daily range): BP systolic 105–161; BP diastolic 60–99; PULSE 78–111; RESP 15–24; TEMP 37.2; O2SAT 93–99
[2020-08-11] MEDS: diphenhydrAMINE 50 MG/ML VIAL 25 MG IV (01:45)
[2020-08-11] MEDS: METOCLOPRAMIDE 10 MG/2 ML INJ IV (01:45)
[2020-08-11] MEDS: LORazepam 2 MG/ML INJ 1 MG IV ×5 (05:54→18:20)
[2020-08-11 06:09] LABS: Lactate (Lactic Acid) 1.8 mmol/L (0.7-2.1)
[2020-08-11 06:12] LABS: Ethanol (ETOH) 107 mg/dL
--- NOTE | 2020-08-11 11:21 | PC.NURSE ---
patient ambulated to restroom and back to bed with standby assist. given water and settled back onto stretcher.
[2020-08-11] MEDS: ONDANSETRON 4 MG/2 ML INJ IV ×2 (13:31→18:34)
--- NOTE | 2020-08-11 14:56 | PC.NURSE ---
patient resting with eyes closed. respirations observed. non labored. provider aware and no new orders at this time.
--- NOTE | 2020-08-11 16:36 | CM.SWNOTE ---
LINOTYPE OPERATOR note LINOTYPE OPERATOR - Vp Lab Assessment LINOTYPE OPERATOR - Vp Lab Assessment Start: 08/11/20 14:43 Freq: Status: Active Protocol: Document 08/11/20 16:22 JONATHAN (Rec: 08/11/20 16:36 JONATHAN [id number]) LINOTYPE OPERATOR/Vp Lab Assessment Time Spent with Patient Start date 08/11/20 Visit Start Time 12:25 End date 08/11/20 Visit End Time 12:50 Total time Care Management spent on 25 patient visit-in minutes Substance Abuse Screening Include Onset, Duration, Intensity Presenting Problem Patient presents to ED for stated complaint of vomiting and coughing. Patient reports she drinks from morning to night and reports drinking 24 beers/daily. Patient's ETOH 512 mg/dL upon presentation to ED 08/10. Precipitating Event(s) Patient reports she has been drinking 24+ beers daily for past week. Patient reports that there have been some arguments with her boyfriend, and states that there has been no violence in their relationship . Patient Strengths Patient reports motivation for discontinuing her alcohol use . Current Behavioral Health Provider(s) None reported. Include Facility, Provider, Ph. # Family Hx of Behavioral Abuse None reported. Rehab Facilities? ((Date(s), Location(s) Patient did go to detox in ) April,. History of Withdrawal? Seizures? Patient reports experiencing tremors and anxiety during withdrawal. Longest Period of Sobriety 1 year. Psychosocial information & Support Patient is a 35 y/o female who Systems currently lives with her boyfriend on a boat in [place]. Patient reports she has been drinking heavily off and on throughout her adult life. Patient reports she is currently not working, but does have a property in [place] that she rents out as an Air BnB. Patient reports that her and her boyfriend have been arguing lately. School/Work None reported. Mental Status Orientation (Person/Place/Time) Oriented x3 Stated Mood not great Affect (Congruent with Mood?) dysthimic, flat, congruent with mood. Thought Content - Specify/Describe No hallucinations, obsessions, Obsessions, Delusions, Hallucinations or delusions observed or reported. Thought Processes (Dmbjpvr-Zrghtkbz-Abcz Coherent Catdgxce-Nfvhqduj-Vmuudfjjsh- Yesrehuypizcll-Wdemlhx-Swxcypuitzcr- Thought Blocking) Speech (Wjzpnf-Cgtq-Hzejhdj-Rapid-Soft- Slow Loud-Pressured) Motor (Yoqgya-Eakqouieb-Zcrg-Other) Slight tremor Insight (Qyzu-Vuns-Wquh/Limited) Fair Judgement (Ngmj-Dzmr-Ddjj/Limited) Fair Impulse Control (Adequate-Impaired) Adequate during assessment Memory (Idyxgqoba-Jdjvmh-Mhalka, Intact for interview, not Impaired-Intact) formally assessed. Concentration (Intact-Impaired) Intact Attention (Intact-Impaired) Intact Behavior (Appropriate-Inappropriate) Appropriate. Risk Assessment Suicidal Ideation (Plan) No Homicidal Ideation (Plan) No Comment Patient denies SI/HI. Intervention Intervention LINOTYPE OPERATOR consult requested for patient. Patient is a 35 y/o female who presents to ED with ETOH intoxication and needing detox. LINOTYPE OPERATOR meets with patient . Per Dr. Palencia, patient will likely need detox placement following ED stay. Patient discusses hx of ETOH use and expresses a desire to discontinue use. Patient reports she has contacted [facility] earlier in day, and that a bed was available. Patient agreeable to continue care at [facility] and patient provides LINOTYPE OPERATOR with consent to call [facility] to facilitate transfer. LINOTYPE OPERATOR updates Dr. Palencia and BENNIE Chino, and leave voicemail for [facility] staff. Plan RA Plan LINOTYPE OPERATOR to seek detox bed for patient. ALEXEI Brooks
--- NOTE | 2020-08-11 18:04 | CM.SWNOTE ---
TOOLS ADMINISTRATOR note TOOLS ADMINISTRATOR contacts [facility] after assessment and speaks to Story. Story confirms that [facility] is still able to accept patient for detox, and confirms that can send patient with prescription. TOOLS ADMINISTRATOR confirms with Dr. Palencia that a prescription can be written and sent with patient. Dr. Palencia confirms that patient is ready for transport at this time. TOOLS ADMINISTRATOR relays this information to Story at [facility]. [place] formally accepts patient for bed at [facility]. TOOLS ADMINISTRATOR updates BENNIE Chino and ARANZA Villa, who coordinates transport via BLS. Details of acceptance and transfer placed in comments section of EMR. TOOLS ADMINISTRATOR updates patient who remains agreeable with plan. Pl: Patient to be transported to and continue care at [facility]. ALEXEI Brooks
[2020-08-11] MEDS: NICOTINE 21 MG PATCH TOP (18:21)
== END 2020-08-11 19:48 | disposition home or self-care (01) ==
PROVIDERS: Emergency Medicine; Nurse Practitioner; Emergency Provider Emergency Medicine
DX: F10.229 Alcohol dependence with intoxication, unspecified (principal); Y90.8 Blood alcohol level of 240 mg/100 ml or more; R11.10 Vomiting, unspecified; R07.9 Chest pain, unspecified; M25.562 Pain in left knee; M25.572 Pain in left ankle and joints of left foot; R11.2 Nausea with vomiting, unspecified; R47.81 Slurred speech; R00.0 Tachycardia, unspecified
CPT/HCPCS: 36415; 70450; 71045; 73562; 73610; 80053; 80076; 80305; 80320; 81001; 81025; 83605; 83690; 83735; 84703; 85025; 87635; 93005; 96361; 96374; 96375; 96376; 99285; J1200; J2060; J2405; J2765; J3475

== ENCOUNTER 2021-04-06 19:04 | Emergency (ER) | payer OTHER, MEDICAID, SELFPAY ==
[2021-04-06 19:20] VITALS: BP 139/67; PULSE 96; RESP 22; TEMP 36.5; O2SAT 97
--- NOTE | 2021-04-06 20:21 | CM.SWNOTE ---
EMERGENCY ROOM CLERK Assessment EMERGENCY ROOM CLERK - Is Project Manager Assessment EMERGENCY ROOM CLERK/Is Project Manager Assessment Time Spent with Patient Start date 04/06/21 Visit Start Time 19:20 End date 04/06/21 Visit End Time 19:40 Total time Care Management spent on 20 patient visit-in minutes Substance Abuse Screening Include Onset, Duration, Intensity Presenting Problem Patient presents to the ED seeking detox from ETOH Precipitating Event(s) Patient endorses loss of her father in November 2019 and recent relapse 3 weeks ago Patient Strengths Patient is seeking help Current Behavioral Health Provider(s) No providers Include Facility, Provider, Ph. # Family Hx of Behavioral Abuse None reported Rehab Facilities? ((Date(s), Location(s) Patient endorses going to ) [facility] in November 2019 and going to [facility] in August 2020. History of Withdrawal? Seizures? Patient endorses feeling shaky when withdrawing and a heavy feeling and goes from her shoulders to arms Longest Period of Sobriety 3 years Psychosocial information & Support Patient is 35 y/o female who Systems resides in [place], [place]. Patient denies having family and friends as supports School/Work Unemployed Legal Concerns Legal Matters - Outstanding Issues None reported Mental Status Orientation (Person/Place/Time) A/Ox4 Stated Mood Struggling with alcohol use Affect (Congruent with Mood?) anxious, labile, congruent with mood Thought Content - Specify/Describe Patient denies obsessions, Obsessions, Delusions, Hallucinations delusions, and hallucinations Thought Processes (Lrxvxvz-Vdcnjhee-Dhfz logical Yfggltvo-Layxbeug-Dxnywujvjf- Frtxksrlzwtzmp-Yoyzecg-Vmilbythacnn- Thought Blocking) Speech (Rxsqok-Mofg-Qcckbru-Rapid-Soft- normal Loud-Pressured) Motor (Dscqso-Petuwpziz-Lydb-Other) normal, not formally assessed Insight (Jfkc-Bytk-Pghe/Limited) fair Judgement (Mfde-Wsqs-Imjg/Limited) poor/limited Impulse Control (Adequate-Impaired) adequate Memory (Bqkmvwqxz-Kimexj-Jglwmu, intact, not formally assessed Impaired-Intact) Concentration (Intact-Impaired) intact Attention (Intact-Impaired) Intact Behavior (Appropriate-Inappropriate) appropriate, presents as anxious by long wait at this ED Risk Assessment Suicidal Ideation (Plan) No Homicidal Ideation (Plan) No Comment Patient denies SI, HI, and self harm. Intervention Intervention EMERGENCY ROOM CLERK enters triage room to meet with patient, present is patient's boyfriend Dorothy with patient's consent. Patient endorses that she has been struggling with ETOH use. Patient states that she has been have 12-14 or more white claw hard seltzers a day. Patient endorses that her last drink was 3 hours ago when she had 2-3 white claws. Patient endorses that she was sober for three months prior to recent replase 3 weeks ago. Patient endorses that she has been self medicating with ETOH over the recent loss of her father in November 2019. Patient endorses that she drinks to forget about her grief and sadness and she has been trying to stop. Patient endorses she is interested in outpatient providers. Patient denies any other substance use other than ETOH. Patient endorses that she is seeking detox treatment and would prefer to go to [facility]. EMERGENCY ROOM CLERK discusses this plan with patient. Patient's boyfriend states that he gets off work at 3 AM and he will be able to take patient directly to [facility] detox when patient is medically clear. It is the opinion of this EMERGENCY ROOM CLERK that patient is appropriate for and would benefit from detox treatment. EMERGENCY ROOM CLERK reviews the above with ED provider Dr. Palencia who indicates agreement and understanding. Plan RA Plan Patient to d/c to detox when medically clear ALEXEI Smith
[2021-04-06 20:23] LABS: Add Manual Diff / Slide Review NO; Basophils Absolute Auto 100 /uL (0-100); Eosinophils Absolute Auto 0 /uL (0-450); Eosinophils Percent Auto 0.2 % (2-4); Hematocrit 44.9 % (36-46); Hemoglobin 15.4 g/dL (12.0-16.0); Lymphocytes Absolute Auto 2900 /uL (1100-4500); Lymphocytes Percent Auto 49.9 % (25-40); Mean Corpuscular HGB Conc 34.4 % (30-36); Mean Corpuscular Hemoglobin 33.1 PG (26-34); Mean Corpuscular Volume 96.1 fL (80-100); Monocytes Absolute Auto 400 /uL (0-900); Monocytes Percent Auto 6.5 % (3-14); Neutrophils Absolute Auto 2500 /uL (1500-7000); Neutrophils Percent Auto 42.4 % (50-75); Platelet Count 301 X10^3/uL (150-400); Red Blood Cell Count 4.67 X10^6/uL (4.0-5.2); Red Cell Distribution Width 16.5 % (11.6-14.8); White Blood Cell Count 5.8 X10^3/uL (4.5-11.0)
[2021-04-06 20:25] LABS: Alanine Aminotransferase 66 IU/L (<35); Albumin 4.7 g/dL (3.5-5.0); Albumin Globulin Ratio 1.5 (1.0-2.8); Alkaline Phosphatase 53 U/L (38-126); Aspartate Aminotransferase 63 IU/L (14-36); BUN Creatinine Ratio 8.3 (6-22); Bilirubin Total 0.6 mg/dL (0.2-1.3); Blood Urea Nitrogen 5 mg/dL (7-17); Calcium 9.1 mg/dL (8.4-10.2); Carbon Dioxide 25 mmol/L (22-32); Chloride 102 mmol/L (98-107); Estimated Glomerular Filt Rate > 60.0 mL/min (>60); Globulin 3.2 g/dL (1.7-4.1); Glucose 142 mg/dL (70-100); HEMOLYSIS < 15 (0-50); Potassium 3.6 mmol/L (3.4-5.1); Sodium 139 mmol/L (137-145); Total Protein 7.9 g/dL (6.3-8.2)
[2021-04-06 20:31] LABS: Ethanol (ETOH) 356 mg/dL
[2021-04-06 20:38] LABS: Pregnancy Test Serum,Qual Negative (Negative)
[2021-04-06] MEDS: NICOTINE 21 MG PATCH TOP (21:36)
--- NOTE | 2021-04-06 21:39 | ED_ITS ---
HPI - General Adult General Chief complaint: Toxicology Problem Stated complaint: wants detox from alcohol Time Seen by Provider: 04/06/21 19:55 Source: patient and family Mode of arrival: Ambulatory History of Present Illness HPI narrative: Patient is a 35-year-old female. She has had history of alcohol abuse in the past. Approximately 1 year ago she went to rehab and has been sober until 3 weeks ago. States she went home because a family member . States that during this time she started drinking again it has been drink ing on a daily basis since then. She states she has withdrawn from alcohol in the past but has never had any seizure activity. She is here voluntarily asking for help with rehab. She states that her last drink was earlier in the day. She is having some shaking upon arrival. Denies any other drugs. Related Data Previous Rx's Medication Instructions Recorded chlordiazepoxide HCl 25 mg capsule See Rx Instructions .ROUTE 04/08/20 .COMPLEX PRN #32 cap lorazepam 1 mg tablet (Ativan) 1 mg PO DAILY PRN #9 tab 08/11/20 ondansetron 4 mg disintegrating 4 mg PO Q6H PRN #10 tab 08/11/20 tablet lorazepam 1 mg tablet (Ativan) 1 mg PO BID PRN 2 Days #4 tab 04/07/21 Allergies Allergy/AdvReac Type Severity Reaction Status Date / Time No Known Drug Allergies Allergy Verified 08/10/20 15:19 Review of Systems Constitutional Constitutional: Denies fever(s) and Reports headache(s) Eyes Eyes: Reports system reviewed and no additional complaints, except as documented ENT Ears, Nose, Mouth, and Throat: Reports headache(s) Cardiovascular Cardiovascular: Reports system reviewed and no additional complaints, except as documented Respiratory Respiratory: Reports system reviewed and no additional complaints, except as documented Gastrointestinal Gastrointestinal: Reports system reviewed and no additional complaints, except as documented Musculoskeletal Musculoskeletal: Reports system reviewed and no additional complaints, except as documented Integumentary/Breasts Skin/Breast: Reports system reviewed and no additional complaints, except as documented Neurologic Neurologic: Reports headache(s) and Reports tremor(s) Psychiatric Psychiatric: Reports other (Alcohol abuse) Hematologic/Lymphatic On Anticoagulants: No Allergic/Immunologic Allergic/Immunologic: Reports system reviewed and no additional complaints, except as documented Patient History Medical History Alcohol abuse Social History (Reviewed 04/07/21 @ 04:56 by KLEBER Yeager Smoking Status: Current every day smoker Smoking Status: Current every day smoker alcohol intake frequency: 3 or more drinks per day Alcohol type: beer Substance Use Type: does not use Exam Initial Vital Signs Initial Vital Signs: Vital Signs Temperature 97.7 F 04/06/21 19:20 Pulse Rate 96 H 04/06/21 19:20 Respiratory Rate 22 04/06/21 19:20 Blood Pressure 139/67 04/06/21 19:20 Pulse Oximetry 97 04/06/21 19:20 Const General: cooperative, healthy appearing and comfortable HENMT Head: normal to inspection and normocephalic Resp Effort & Inspection: normal respiratory effort Cardio Rate: regular rate GI Inspection: normal to inspection Skin General: no rashes or lesions noted Neuro General: patient alert, patient awake and patient oriented x3 Extrem General: normal to inspection and capillary refill normal Psych Appearance: grossly normal and well kempt Course Orders Ordered: ED Orders 04/06/21 21:39 COVID19 -Nasal swab/Pre-Proc Stat 04/07/21 00:50 Ethanol (ETOH) Stat 04/07/21 02:18 Urinalysis and Microscopic Stat Urine Drug Screen, Rapid Stat Lorazepam (Lorazepam 0.5 Mg Tablet) 1 mg PO NOW ONE Stop: 04/07/21 05:05 Discontinued Medications Lorazepam (Lorazepam 2 Mg/Ml Inj) 1 mg IV NOW ONE Stop: 04/06/21 19:36 Last Admin: 04/06/21 21:44 Dose: 1 mg Documented by: MICHELE Lorazepam (Lorazepam 0.5 Mg Tablet) 1 mg PO NOW ONE Stop: 04/06/21 23:46 Last Admin: 04/06/21 23:58 Dose: 1 mg Documented by: UDAY Nicotine (Nicotine 21 Mg Patch) 21 mg TOP NOW ONE Stop: 04/06/21 21:19 Last Admin: 04/06/21 21:36 Dose: 21 mg Documented by: NABEEL Vital Signs Vital signs: Vital Signs - 8 hr 04/06/21 23:40 04/07/21 03:59 Pulse Rate 114 H 83 Respiratory Rate 20 20 Blood Pressure 110/61 Pulse Oximetry 99 97 Medical Decision Making Lab Data Lab results reviewed: Yes I reviewed the patient's lab results. Result diagrams: 04/06/21 19:45 04/06/21 19:45 Labs: Lab Results 04/06/21 04/06/21 04/06/21 Range/Units 19:45 19:45 19:45 WBC 5.8 (4.5-11.0) X10^3/uL RBC 4.67 (4.0-5.2) X10^6/uL Hgb 15.4 (12.0-16.0) g/dL Hct 44.9 (36-46) % MCV 96.1 (80-100) fL MCH 33.1 (26-34) PG MCHC 34.4 (30-36) % RDW 16.5 H (11.6-14.8) % Plt Count 301 (150-400) X10^3/uL Neut % (Auto) 42.4 L (50-75) % Lymph % (Auto) 49.9 H (25-40) % [place] % (Auto) 6.5 (3-14) % Eos % (Auto) 0.2 L (2-4) % Baso % (Auto) 1.0 (0-2) % Neut # (Auto) 2500 (9399-2835) /uL Lymph # (Auto) 2900 (7503-6003) /uL [place] # (Auto) 400 (0-900) /uL Eos # (Auto) 0 (0-450) /uL Baso # (Auto) 100 (0-100) /uL Sodium 139 (137-145) mmol/L Potassium 3.6 (3.4-5.1) mmol/L Chloride 102 (98-107) mmol/L Carbon Dioxide 25 (22-32) mmol/L BUN 5 L (7-17) mg/dL Creatinine 0.60 (0.52-1.04) mg/dL Estimated GFR > 60.0 (>60) mL/min BUN/Creatinine Ratio 8.3 (6-22) Glucose 142 H (70-100) mg/dL Calcium 9.1 (8.4-10.2) mg/dL Total Bilirubin 0.6 (0.2-1.3) mg/dL AST 63 H (14-36) IU/L ALT 66 H (<35) IU/L Alkaline Phosphatase 53 (38-126) U/L Total Protein 7.9 (6.3-8.2) g/dL Albumin 4.7 (3.5-5.0) g/dL Globulin 3.2 (1.7-4.1) g/dL Albumin/Globulin Ratio 1.5 (1.0-2.8) Serum , Qual (Negative) Urine Color Urine Appearance Urine pH (4.5-8.0) Ur Specific [place] (1.000-1.035) Urine Protein (Negative) Urine Glucose (UA) (Negative) g/dL Urine Ketones (NEGATIVE) Urine Occult Blood (Negative) Urine Nitrate (Negative) Urine Bilirubin (NEGATIVE) Urine Urobilinogen (0.2) E.U./dL Ur Leukocyte Esterase (NEGATIVE) Urine RBC (0-5/HPF) Urine WBC (0-5/HPF) Urine Bacteria (None) Ur Culture Indicated? U Opiates 300ng/mL cut (Negative) Ur Oxycodone Screen (Negative) Urine Methadone Screen (Negative) Ur Barbiturates Screen (Negative) U Tricyclic Antidepress (Negative) Ur Phencyclidine Scrn (Negative) Ur Amphetamines Screen (Negative) U Methamphetamines Scrn (Negative) Ur MDMA Scrn (Ecstasy) (Negative) U Benzodiazepines Scrn (Negative) Urine Cocaine Screen (Negative) U Marijuana (THC) Screen (Negative) Ethyl Alcohol 356 H ( - 10) mg/dL SARS-CoV-2 (PCR) (Negative) 04/06/21 04/06/21 04/07/21 Range/Units 19:45 21:39 00:50 WBC (4.5-11.0) X10^3/uL RBC (4.0-5.2) X10^6/uL Hgb (12.0-16.0) g/dL Hct (36-46) % MCV (80-100) fL MCH (26-34) PG MCHC (30-36) % RDW (11.6-14.8) % Plt Count (150-400) X10^3/uL Neut % (Auto) (50-75) % Lymph % (Auto) (25-40) % [place] % (Auto) (3-14) % Eos % (Auto) (2-4) % Baso % (Auto) (0-2) % Neut # (Auto) (7867-9390) /uL Lymph # (Auto) (4044-2327) /uL [place] # (Auto) (0-900) /uL Eos # (Auto) (0-450) /uL Baso # (Auto) (0-100) /uL Sodium (137-145) mmol/L Potassium (3.4-5.1) mmol/L Chloride (98-107) mmol/L Carbon Dioxide (22-32) mmol/L BUN (7-17) mg/dL Creatinine (0.52-1.04) mg/dL Estimated GFR (>60) mL/min BUN/Creatinine Ratio (6-22) Glucose (70-100) mg/dL Calcium (8.4-10.2) mg/dL Total Bilirubin (0.2-1.3) mg/dL AST (14-36) IU/L ALT (<35) IU/L Alkaline Phosphatase (38-126) U/L Total Protein (6.3-8.2) g/dL Albumin (3.5-5.0) g/dL Globulin (1.7-4.1) g/dL Albumin/Globulin Ratio (1.0-2.8) Serum , Qual Negative (Negative) Urine Color Urine Appearance Urine pH (4.5-8.0) Ur Specific [place] (1.000-1.035) Urine Protein (Negative) Urine Glucose (UA) (Negative) g/dL Urine Ketones (NEGATIVE) Urine Occult Blood (Negative) Urine Nitrate (Negative) Urine Bilirubin (NEGATIVE) Urine Urobilinogen (0.2) E.U./dL Ur Leukocyte Esterase (NEGATIVE) Urine RBC (0-5/HPF) Urine WBC (0-5/HPF) Urine Bacteria (None) Ur Culture Indicated? U Opiates 300ng/mL cut (Negative) Ur Oxycodone Screen (Negative) Urine Methadone Screen (Negative) Ur Barbiturates Screen (Negative) U Tricyclic Antidepress (Negative) Ur Phencyclidine Scrn (Negative) Ur Amphetamines Screen (Negative) U Methamphetamines Scrn (Negative) Ur MDMA Scrn (Ecstasy) (Negative) U Benzodiazepines Scrn (Negative) Urine Cocaine Screen (Negative) U Marijuana (THC) Screen (Negative) Ethyl Alcohol 209 H ( - 10) mg/dL SARS-CoV-2 (PCR) Negative (Negative) 04/07/21 04/07/21 Range/Units 02:18 02:18 WBC (4.5-11.0) X10^3/uL RBC (4.0-5.2) X10^6/uL Hgb (12.0-16.0) g/dL Hct (36-46) % MCV (80-100) fL MCH (26-34) PG MCHC (30-36) % RDW (11.6-14.8) % Plt Count (150-400) X10^3/uL Neut % (Auto) (50-75) % Lymph % (Auto) (25-40) % [place] % (Auto) (3-14) % Eos % (Auto) (2-4) % Baso % (Auto) (0-2) % Neut # (Auto) (7358-0662) /uL Lymph # (Auto) (4268-9001) /uL [place] # (Auto) (0-900) /uL Eos # (Auto) (0-450) /uL Baso # (Auto) (0-100) /uL Sodium (137-145) mmol/L Potassium (3.4-5.1) mmol/L Chloride (98-107) mmol/L Carbon Dioxide (22-32) mmol/L BUN (7-17) mg/dL Creatinine (0.52-1.04) mg/dL Estimated GFR (>60) mL/min BUN/Creatinine Ratio (6-22) Glucose (70-100) mg/dL Calcium (8.4-10.2) mg/dL Total Bilirubin (0.2-1.3) mg/dL AST (14-36) IU/L ALT (<35) IU/L Alkaline Phosphatase (38-126) U/L Total Protein (6.3-8.2) g/dL Albumin (3.5-5.0) g/dL Globulin (1.7-4.1) g/dL Albumin/Globulin Ratio (1.0-2.8) Serum , Qual (Negative) Urine Color Yellow Urine Appearance Clear Urine pH 6.0 (4.5-8.0) Ur Specific [place] 1.010 (1.000-1.035) Urine Protein Negative (Negative) Urine Glucose (UA) Negative (Negative) g/dL Urine Ketones Negative (NEGATIVE) Urine Occult Blood Negative (Negative) Urine Nitrate Negative (Negative) Urine Bilirubin Negative (NEGATIVE) Urine Urobilinogen 0.2 (0.2) E.U./dL Ur Leukocyte Esterase Negative (NEGATIVE) Urine RBC None seen (0-5/HPF) Urine WBC None seen (0-5/HPF) Urine Bacteria None seen (None) Ur Culture Indicated? Cult not indicated U Opiates 300ng/mL cut Negative (Negative) Ur Oxycodone Screen Negative (Negative) Urine Methadone Screen Negative (Negative) Ur Barbiturates Screen Negative (Negative) U Tricyclic Antidepress Negative (Negative) Ur Phencyclidine Scrn Negative (Negative) Ur Amphetamines Screen Negative (Negative) U Methamphetamines Scrn Negative (Negative) Ur MDMA Scrn (Ecstasy) Negative (Negative) U Benzodiazepines Scrn Positive H (Negative) Urine Cocaine Screen Negative (Negative) U Marijuana (THC) Screen Negative (Negative) Ethyl Alcohol ( - 10) mg/dL SARS-CoV-2 (PCR) (Negative) MDM Narrative Medical decision making narrative: Patient's alcohol level was elevated here up on arrival. She was having some shaking and was given a dose of Ativan which seemed to improve her symptoms tremendously. She was able to sleep afterwards. We did re-dose her 1 time since then. Her alcohol level is now below 250. She did have a phone interview with [facility] and was accepted there for continued evaluation and treatment. Discharge Plan Departure Patient Disposition: Home Clinical Impression: Alcoholic intoxication Instructions: DI for Alcohol Use Disorder Activity Restrictions/Additional Instructions: You are being discharged from this emergency department to be transported by private vehicle to the [facility] detox at the [facility]. The address is [address] [place] [address] in [facility]. You are not to drive for the next 24 hours nor in the future if you drink alcohol. A prescription for Ativan was electronically transmitted to [facility] pharmacy in [place]. The staff at the crisis center can pick this up at this medicine is only to be administered under their care. Prescriptions: New lorazepam [Ativan] 1 mg tablet 1 mg PO BID PRN (Reason: alcohol withdrawal) 2 Days Qty: 4 RF: 0 No Action ondansetron 4 mg tablet,disintegrating 4 mg PO Q6H PRN (Reason: nausea and vomiting) Qty: 10 RF: 0 lorazepam [Ativan] 1 mg tablet 1 mg PO DAILY PRN (Reason: alcohol withdrawal) Qty: 9 RF: 0 chlordiazepoxide HCl 25 mg capsule See Rx Instructions .ROUTE .COMPLEX PRN (Reason: alcohol withdrawal) Qty: 32 RF: 0
[2021-04-06] MEDS: LORazepam 2 MG/ML INJ 1 MG IV (21:44)
[2021-04-06 22:01] LABS: COVID19 -Nasal RAPID Negative (Negative)
[2021-04-06 23:40] VITALS: PULSE 114; RESP 20; O2SAT 99
[2021-04-06] MEDS: LORazepam 0.5 MG TABLET 1 MG PO (23:58)
[2021-04-07 01:38] LABS: Ethanol (ETOH) 209 mg/dL
[2021-04-07 02:19] LABS: Bacteria Urine None Seen; RBC Urine None Seen (0-5/HPF); WBC Urine None Seen (0-5/HPF)
[2021-04-07 02:22] LABS: Appearance Urine UA CLEAR; Bilirubin Urine UA NEGATIVE (NEGATIVE); Color Urine UA YELLOW; Glucose Urine UA NEGATIVE (Negative); Ketones Urine UA NEGATIVE (NEGATIVE); Leukocyte Esterase Urine UA NEGATIVE (NEGATIVE); Nitrite Urine UA NEGATIVE (Negative); Occult Blood Urine UA NEGATIVE (Negative); Protein Urine UA NEGATIVE (Negative); Urobilinogen Urine UA 0.2 E.U./dL (0.2)
[2021-04-07 02:27] LABS: UR Morphine/Opiate cutoff 300 Negative (Negative); Ur Creatinine 20 (Normal); Ur Specific Gravity 1.025 (Normal); Urine Amphetamines Negative (Negative); Urine Barbiturates Negative (Negative); Urine Benzodiazepines Positive (Negative); Urine Cocaine Negative (Negative); Urine MDMA Negative (Negative); Urine Methadone Negative (Negative); Urine Methamphetamines Negative (Negative); Urine Oxycodone Negative (Negative); Urine Phencyclidine Negative (Negative); Urine Tetrahydrocannabinol Negative (Negative); Urine Tricyclic Antidepressant Negative (Negative); Urine pH 4 (Normal)
[2021-04-07 03:43] LABS: Culture Indicated Urine Cult Not Indicated
[2021-04-07 03:59] VITALS: BP 110/61; PULSE 83; RESP 20; O2SAT 97
[2021-04-07] MEDS: LORazepam 0.5 MG TABLET 1 MG PO (05:11)
[2021-04-07 05:20] VITALS: BP 103/66; PULSE 90; RESP 20; O2SAT 98
== END 2021-04-07 05:20 | disposition home or self-care (01) ==
PROVIDERS: Emergency Provider Emergency Medicine
DX: F10.129 Alcohol abuse with intoxication, unspecified (principal); Y90.8 Blood alcohol level of 240 mg/100 ml or more; R51.9 Headache, unspecified; R25.1 Tremor, unspecified; Z20.822 Contact with and (suspected) exposure to COVID-19
CPT/HCPCS: 36415; 80053; 80305; 80320; 81001; 84703; 85025; 87635; 96374; 99284; C9803; J2060

== ENCOUNTER → 2021-04-26 08:18 | Outpatient (CLI) | payer OTHER, MEDICAID, SELFPAY ==
[2021-04-26 09:38] LABS: Add Manual Diff / Slide Review NO; Basophils Absolute Auto 100 /uL (0-100); Basophils Percent Auto 1.2 % (0-2); Eosinophils Absolute Auto 0 /uL (0-450); Eosinophils Percent Auto 0.8 % (2-4); Hematocrit 42.3 % (36-46); Lymphocytes Absolute Auto 1600 /uL (1100-4500); Lymphocytes Percent Auto 34.9 % (25-40); Mean Corpuscular HGB Conc 33.2 % (30-36); Mean Corpuscular Hemoglobin 32.4 PG (26-34); Mean Corpuscular Volume 97.8 fL (80-100); Monocytes Absolute Auto 500 /uL (0-900); Neutrophils Absolute Auto 2400 /uL (1500-7000); Neutrophils Percent Auto 53.1 % (50-75); Platelet Count 256 X10^3/uL (150-400); Red Blood Cell Count 4.33 X10^6/uL (4.0-5.2); Red Cell Distribution Width 16.3 % (11.6-14.8); White Blood Cell Count 4.6 X10^3/uL (4.5-11.0)
[2021-04-26 09:48] LABS: Alanine Aminotransferase 23 IU/L (<35); Albumin 3.9 g/dL (3.5-5.0); Albumin Globulin Ratio 1.5 (1.0-2.8); Alkaline Phosphatase 39 U/L (38-126); Aspartate Aminotransferase 21 IU/L (14-36); BUN Creatinine Ratio 19.4 (6-22); Bilirubin Total 0.2 mg/dL (0.2-1.3); Blood Urea Nitrogen 13 mg/dL (7-17); Calcium 9.5 mg/dL (8.4-10.2); Carbon Dioxide 24 mmol/L (22-32); Chloride 106 mmol/L (98-107); Estimated Glomerular Filt Rate > 60.0 mL/min (>60); Globulin 2.6 g/dL (1.7-4.1); Glucose 98 mg/dL (70-100); HEMOLYSIS < 15 (0-50); Potassium 4.4 mmol/L (3.4-5.1); Sodium 137 mmol/L (137-145); Total Protein 6.5 g/dL (6.3-8.2)
[2021-04-26 10:17] LABS: TSH w/ Reflex to FT4 0.85 uIU/mL (0.47-4.68)
== END ==
PROVIDERS: PCP Registered Nurse; Referring Provider Registered Nurse; Visit Provider Registered Nurse
DX: F41.8 Other specified anxiety disorders (principal); Z83.49 Family history of other endocrine, nutritional and metabolic diseases
CPT/HCPCS: 36415; 80053; 84443; 85025